=== PATIENT | female | born 1955 | race Caucasian/White ===

== ENCOUNTER 2017-02-15 12:57 | Observation (INO) | payer OTHER ==
[2017-02-15] MEDS ORDERED: Aspirin 81 MG Tab.Chew PO ONE (13:22)
[2017-02-15] MEDS ORDERED: Nitroglycerin 2% Oint 1 GM UD Packet TOP ONE (13:22)
[2017-02-15] MEDS ORDERED: Aspirin 81 MG Tab.Chew ONE (13:28)
[2017-02-15] MEDS ORDERED: Nitroglycerin 2% Oint 1 GM UD Packet ONE (13:29)
--- NOTE | 2017-02-15 13:32 | EDM.PDOC ---
ED HPI GENERAL MEDICAL PROBLEM - General Chief Complaint: Chest Pain Stated Complaint: HIGH PLUS, CHEST PAIN, HIGH BP Time Seen by Provider: 02/15/17 12:57 Source of Information: Reports: Patient History Limitations: Reports: No Limitations - History of Present Illness INITIAL COMMENTS - FREE TEXT/NARRATIVE: 62 years old w f came to the ed with her family due to SSCP 4/10 fro 2 days. Pt has a h/o CAD wit sent placements. Pt was seen in this ed recently for same. No N/V/D or any otehr acute medical issues. SSCP was 4/10, BP was 122/87 pulse 88 on arrival. Onset Date: 02/14/17 Onset Time: 05:00 Duration: Day(s):, Intermittent Location: Reports: Chest Quality: Reports: Dull, Pressure Severity: Moderate Improves with: Reports: Medication Worsens with: Reports: None Associated Symptoms: Reports: Other (CAD) Left Chest Pain Score (Numeric/FACES): 4 - Related Data Allergies Allergy/AdvReac Type Severity Reaction Status Date / Time Penicillins Allergy Other Verified 07/04/16 19:11 Home Meds: Home Meds Aspirin 81 mg PO BEDTIME 07/04/16 [History] Cholecalciferol (Vitamin D3) [Vitamin D3] 1,000 unit PO DAILY 07/04/16 [History] Cyclobenzaprine [Flexeril] 20 mg PO BEDTIME 07/04/16 [History] Gabapentin [Neurontin] 900 mg PO BEDTIME 07/04/16 [History] Metoprolol Tartrate 25 mg PO BID 07/04/16 [History] Prazosin HCl [Prazosin] 4 mg PO BEDTIME 07/04/16 [History] Sennosides/Docusate Sodium [Serenity-Colace] 1 tab PO BEDTIME 07/04/16 [History] atorvaSTATin [Lipitor] 40 mg PO BEDTIME 07/04/16 [History] cloNIDine [Catapres] 0.2 mg PO BEDTIME 07/04/16 [History] lamoTRIgine [Lamotrigine] 150 mg PO BEDTIME 07/04/16 [History] lamoTRIgine [Lamotrigine] 100 mg PO DAILY 07/05/16 [History] Cranberry Extract [Cranberry] 500 mg PO BEDTIME 07/06/16 [History] Ferrous Sulfate 325 mg PO BIDMEALS #30 tab 07/06/16 [Rx] Mv-Mn/FA/Vit K/Lycop/Lut/Zeaxa [Ocuvite Eye + Multi Tablet] 1 tab PO DAILY 07/06 [History] Omeprazole 20 mg PO BIDAC #30 cap.cr 07/06/16 [Rx] Venlafaxine [Effexor XR] 225 mg PO DAILY 07/06/16 [History] Beta-Carotene(A) W-C & E/Min [Vision Vitamins] 1 each PO DAILY 02/15/17 [History ] Montelukast Sodium 10 mg PO DAILY 02/15/17 [History] Vit C/E/Zn/Coppr/Lutein/Zeaxan [Preservision Areds 2 Softgel] 1 each PO BID [History] Past Medical History - Past Health History Medical/Surgical History: Denies Medical/Surgical History HEENT History: Reports: Impaired Vision, Macular Degeneration Cardiovascular History: Reports: High Cholesterol, Hypertension Respiratory History: Reports: Asthma, Sleep Apnea Gastrointestinal History: Reports: Chronic Constipation, PUD 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: Musculoskeletal History: Reports: RA Neurological History: Reports: Concussion, Seizure Other Neuro History: "a couple mini-seizures" Psychiatric History: Reports: Anxiety, Depression Endocrine/Metabolic History: Reports: None Dermatologic History: Reports: None - Past Surgical History HEENT Surgical History: Reports: Naso-Sinus Surgery Cardiovascular Surgical History: Reports: Coronary Artery Stent GI Surgical History: Reports: Appendectomy, Cholecystectomy, Colonoscopy, EGD, Other (See Below) Musculoskeletal Surgical History: Reports: Carpal Tunnel, Knee Replacement, Other (See Below) Social & Family History - Family History Family Medical History: Unobtainable Cardiac: Reports: [place] Musculoskeletal: Reports: Osteoporosis Oncologic: Reports: Hodgkin's Lymphoma - Tobacco Use Smoking Status *Q: Never Smoker Second Hand Smoke Exposure: No - Caffeine Use Caffeine Use: Reports: Coffee, Soda - Recreational Drug Use Recreational Drug Use: No ED ROS GENERAL - Review of Systems Review Of Systems: See Below Constitutional: Reports: No Symptoms HEENT: Reports: No Symptoms Respiratory: Reports: No Symptoms Cardiovascular: Reports: Chest Pain Endocrine: Reports: No Symptoms GI/Abdominal: Reports: No Symptoms : Reports: No Symptoms Musculoskeletal: Reports: No Symptoms Skin: Reports: No Symptoms Neurological: Reports: No Symptoms Psychiatric: Reports: No Symptoms Hematologic/Lymphatic: Reports: No Symptoms Immunologic: Reports: No Symptoms ED EXAM, GENERAL - Physical Exam Exam: See Below Exam Limited By: No Limitations General Appearance: Alert, WD/WN, Mild Distress Eye Exam: Bilateral Eye: Normal Inspection Ears: Normal External Exam Ear Exam: Bilateral Ear: Auricle Normal Nose: Normal Inspection, Normal Mucosa Throat/Mouth: Normal Inspection, Normal Lips, Normal Teeth Head: Atraumatic, Normocephalic Neck: Normal Inspection, Supple, Non-Tender Respiratory/Chest: No Respiratory Distress, Lungs Clear, Normal Breath Sounds Cardiovascular: Normal Peripheral Pulses, Regular Rate, Rhythm, No Edema, No Gallop Peripheral Pulses: 1+: Femoral (L), Femoral (R) GI/Abdominal: Normal Bowel Sounds, Soft, Non-Tender, No Organomegaly, No Distention, No Abnormal Bruit (Female) Exam: Deferred Rectal (Female) Exam: Deferred Back Exam: Normal Inspection, Full Range of Motion Extremities: Normal Inspection, Normal Range of Motion, Non-Tender, No Pedal Edema Neurological: Alert, Oriented, CN II-XII Intact Psychiatric: Normal Affect, Normal Mood Skin Exam: Warm, Dry, Intact, Normal Color Lymphatic: No Adenopathy EKG INTERPRETATION EKG Date: 02/15/17 Time: 13:15 Rate (beats/min): 84 [place]: normal P-wave: present QRS: normal ST-T: normal QT: normal Comparison: NA - no prior EKG Course - Vital Signs Text/Narrative:: 62 years old w f came to the ed with her family due to SSCP 4/10 fro 2 days. Pt has a h/o CAD wit sent placements. Pt was seen in this ed recently for same. No N/V/D or any other acute medical issues. SSCP was 4/10, BP was 122/87 pulse 88 on arrival. pt did not take the clonidin yet. no diaphoresis. PE: SSCP, HTN Labs: CBC, BMP Troponin were nl. Imaging: CXR NAD Impression: Chest pain H/O CAD, HTN Tx: ASA, Nitro Paste, Clonidin. Morphine Reexam: Improved, not pain free yet 11/02 Plan: admit toward Last Recorded V/S: Last Vital Signs Temp 36.9 C 02/15/17 13:05 Pulse 95 02/15/17 13:05 Resp 18 05/26/17 13:05 BP 155/93 H 02/15/17 14:27 Pulse Ox 100 02/15/17 13:05 - Orders/Labs/Meds Orders: Active Orders 24 hr Category Date Time Status CXR [Chest 1V Frontal] [CR] Stat Exams 02/15/17 13:13 Taken Sodium Chloride 0.9% [Normal Saline] 1,000 ml Med 02/15/17 13:30 Active IV ASDIRECTED Medication Orders Sodium Chloride (Normal Saline) 1,000 mls @ 125 mls/hr IV ASDIRECTED [facility] Last Admin: 02/15/17 13:42 Dose: 125 mls/hr Labs: Laboratory Tests 02/15/17 02/15/17 02/15/17 Range/Units 13:30 13:30 13:30 WBC 6.2 (4.5-12.0) X10-3/uL RBC 4.74 (3.23-5.20) x10(6)uL Hgb 14.5 D (11.5-15.5) g/dL Hct 43.3 D (30.0-51.3) % MCV 91.3 (80-96) fL MCH 30.7 (27.7-33.6) pg MCHC 33.6 (32.2-35.4) g/dL RDW 11.5 (11.5-15.5) % Plt Count 264 (125-369) X10(3)uL MPV 7.7 (7.4-10.4) fL Neut % (Auto) 68.3 (46-82) % Lymph % (Auto) 24.1 (13-37) % [place] % (Auto) 4.7 (4-12) % Eos % (Auto) 1 (1.0-5.0) % Baso % (Auto) 2 (0-2) % Neut # (Auto) 4.2 (1.6-8.3) # Lymph # (Auto) 1.5 (0.6-5.0) # [place] # (Auto) 0.3 (0.0-1.3) # Eos # (Auto) 0.1 (0.0-0.8) # Baso # (Auto) 0.1 (0.0-0.2) # PT 9.6 (8.7-11.1) INR 0.95 (0.89-1.13) D-Dimer, Quantitative (100-400) ng/mL Sodium 145 (135-145) mmol/L Potassium 4.4 (3.5-5.3) mmol/L Chloride 110 (100-110) mmol/L Carbon Dioxide 23 (23-29) mmol/L BUN 15 (8-23) mg/dL Creatinine 0.8 (0.6-1.3) mg/dL Est Cr Clr Drug Dosing TNP Estimated GFR (MDRD) > 60 (>60) BUN/Creatinine Ratio 18.8 (9-20) Glucose 60 L (80-116) mg/dL Calcium 9.6 (8.6-10.2) mg/dL Troponin I (0.02-0.06) NG/ML 02/15/17 02/15/17 Range/Units 13:30 13:30 WBC (4.5-12.0) X10-3/uL RBC (3.23-5.20) x10(6)uL Hgb (11.5-15.5) g/dL Hct (30.0-51.3) % MCV (80-96) fL MCH (27.7-33.6) pg MCHC (32.2-35.4) g/dL RDW (11.5-15.5) % Plt Count (125-369) X10(3)uL MPV (7.4-10.4) fL Neut % (Auto) (46-82) % Lymph % (Auto) (13-37) % [place] % (Auto) (4-12) % Eos % (Auto) (1.0-5.0) % Baso % (Auto) (0-2) % Neut # (Auto) (1.6-8.3) # Lymph # (Auto) (0.6-5.0) # [place] # (Auto) (0.0-1.3) # Eos # (Auto) (0.0-0.8) # Baso # (Auto) (0.0-0.2) # PT (8.7-11.1) INR (0.89-1.13) D-Dimer, Quantitative 265 (100-400) ng/mL Sodium (135-145) mmol/L Potassium (3.5-5.3) mmol/L Chloride (100-110) mmol/L Carbon Dioxide (23-29) mmol/L BUN (8-23) mg/dL Creatinine (0.6-1.3) mg/dL Est Cr Clr Drug Dosing Estimated GFR (MDRD) (>60) BUN/Creatinine Ratio (9-20) Glucose (80-116) mg/dL Calcium (8.6-10.2) mg/dL Troponin I < 0.01 L (0.02-0.06) NG/ML Meds: Medications Generic Name Dose Route Start Last Admin Trade Name Freq PRN Reason Stop Dose Admin Sodium Chloride 1,000 mls @ 125 mls/hr 02/15/17 13:30 02/15/17 13:42 Normal Saline IV 125 mls/hr ASDIRECTED [facility] Administration Discontinued Medications Generic Name Dose Route Start Last Admin Trade Name Freq PRN Reason Stop Dose Admin Aspirin 324 mg 02/15/17 13:22 02/15/17 13:43 Aspirin PO 02/15/17 13:23 324 mg ONETIME ONE Administration Aspirin Confirm 02/15/17 13:28 02/15/17 14:12 Aspirin Administered 02/15/17 13:29 Not Given Dose 324 mg .ROUTE .STK-MED ONE Clonidine HCl 0.1 mg 02/15/17 14:16 02/15/17 14:27 Catapres PO 02/15/17 14:17 0.1 mg ONETIME ONE Administration Morphine Sulfate 2 mg 02/15/17 14:29 02/15/17 14:45 Morphine IVPUSH 02/15/17 14:30 2 mg ONETIME ONE Administration Nitroglycerin 1 gm 02/15/17 13:22 02/15/17 13:42 Nitro-Bid 2% TOP 02/15/17 13:23 1 gm ONETIME ONE Administration Nitroglycerin Confirm 02/15/17 13:29 02/15/17 14:12 Nitro-Bid 2% Administered 02/15/17 13:30 Not Given Dose 1 gm .ROUTE .STK-MED ONE Departure - Departure Time of Disposition: 15:23 Disposition: Refer to Observation Condition: fair Clinical Impression: Chest pain Qualifiers: Chest pain type: chest pain due to myocardial ischemia Ischemic chest pain type : unspecified angina pectoris type Qualified Code(s): I20.9 - Angina pectoris, unspecified Referrals: PCP,Not In Area [Primary Care Provider] - Forms: ED Department Discharge - My Orders Last 24 Hours: My Active Orders 02/15/17 13:13 CXR [Chest 1V Frontal] [CR] Stat 02/15/17 13:30 Sodium Chloride 0.9% [Normal Saline] 1,000 ml IV ASDIRECTED - Assessment/Plan Last 24 Hours: My Active Orders 02/15/17 13:13 CXR [Chest 1V Frontal] [CR] Stat 02/15/17 13:30 Sodium Chloride 0.9% [Normal Saline] 1,000 ml IV ASDIRECTED
[2017-02-15] MEDS: Sodium Chloride 0.9% 1,000 ML IV SCH ×2 (13:42→21:37)
[2017-02-15] MEDS ORDERED: cloNIDine 0.1 MG Tab PO ONE (14:16)
[2017-02-15] MEDS ORDERED: Morphine 2 MG/ML Syringe IVPUSH ONE (14:29)
[2017-02-15] MEDS ORDERED: Morphine 2 MG/ML Syringe IVPUSH PRN (15:34)
[2017-02-15] MEDS ORDERED: Ondansetron 4 MG/2 ML SDV IV PRN (15:34)
--- NOTE | 2017-02-15 16:10 | CR ---
INDICATION: Chest pain. CHEST: An AP upright portable view of the chest 02/15/2017 was obtained. No comparisons were available. The heart appeared normal in size. The aorta is slightly tortuous. Overlying EKG leads are noted. An active infiltrate or effusion was not identified. IMPRESSION: No acute process. MTDD
[2017-02-15] MEDS ORDERED: Omeprazole 20 MG Cap.CR PO PRN (17:04)
--- NOTE | 2017-02-15 17:18 | PCM.HP ---
H&P History of Present Illness - General Date of Service: 02/15/17 Source of Information: Patient History Limitations: Reports: No Limitations - History of Present Illness Initial Comments - Free Text/Narative: This is a 62-year-old female patient with known history coronary artery disease. She had a stent placement in 2006. She states she started having chest pain off and on yesterday and it continued today to the point where she came into the ER. She states the chest pain is left lower chest along the anterior axillary line. She denies pleuritic chest pain. She says it does not radiate. She she states she felt clammy other way to the hospital today and had some shortness of breath. She denies nausea. She has a history of coronary artery disease, hyperlipidemia, hypertension. She denies diabetes and smoking. Strong family history for coronary artery disease. Left Chest Pain Score (Numeric/FACES): 4 - Related Data Allergies/Adverse Reactions: Allergies Allergy/AdvReac Type Severity Reaction Status Date / Time Penicillins Allergy Other Verified 07/04/16 19:11 Home Medications: Home Meds Aspirin 81 mg PO BEDTIME 07/04/16 [History] Cholecalciferol (Vitamin D3) [Vitamin D3] 1,000 unit PO DAILY 07/04/16 [History] Cyclobenzaprine [Flexeril] 20 mg PO BEDTIME 07/04/16 [History] Gabapentin [Neurontin] 900 mg PO BEDTIME 07/04/16 [History] Metoprolol Tartrate 25 mg PO BID 07/04/16 [History] Prazosin HCl [Prazosin] 4 mg PO BEDTIME 07/04/16 [History] atorvaSTATin [Lipitor] 40 mg PO BEDTIME 07/04/16 [History] cloNIDine [Catapres] 0.1 mg PO BEDTIME 07/04/16 [History] lamoTRIgine [Lamotrigine] 150 mg PO BEDTIME 07/04/16 [History] lamoTRIgine [Lamotrigine] 100 mg PO DAILY 07/05/16 [History] Cranberry Extract [Cranberry] 500 mg PO BEDTIME 07/06/16 [History] Ferrous Sulfate 325 mg PO BIDMEALS #30 tab 07/06/16 [Rx] Venlafaxine [Effexor XR] 225 mg PO DAILY 07/06/16 [History] Beta-Carotene(A) W-C & E/Min [Vision Vitamins] 1 each PO DAILY 02/15/17 [History ] Docusate Sodium 100 mg PO BEDTIME 02/15/17 [History] Montelukast Sodium 10 mg PO DAILY 02/15/17 [History] Multivitamin with Minerals [Multivitamins with Minerals] 1 tab PO DAILY [History] Omeprazole 40 mg PO BID PRN 02/15/17 [History] Past Medical History - Past Health History Medical/Surgical History: Denies Medical/Surgical History HEENT History: Reports: Impaired Vision, Macular Degeneration Cardiovascular History: Reports: High Cholesterol, Hypertension Other Cardiovascular History: hx a-fib Respiratory History: Reports: Asthma, Sleep Apnea Gastrointestinal History: Reports: Chronic Constipation, PUD Other Gastrointestinal History: GI bleed last July or August, anemic since then 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: Musculoskeletal History: Reports: RA Neurological History: Reports: Concussion, Seizure Other Neuro History: "a couple mini-seizures" Psychiatric History: Reports: Anxiety, Depression Endocrine/Metabolic History: Reports: None Other Endocrine/Metabolic History: occasionally hypoglycemic Hematologic History: Reports: Anemia, Other (See Below) Other Hematologic History: since GI bleed Dermatologic History: Reports: None - Past Surgical History HEENT Surgical History: Reports: Naso-Sinus Surgery Cardiovascular Surgical History: Reports: Coronary Artery Stent GI Surgical History: Reports: Appendectomy, Cholecystectomy, Colonoscopy, EGD, Other (See Below) Female Surgical History: Reports: Hysterectomy Neurological Surgical History: Reports: None Musculoskeletal Surgical History: Reports: Carpal Tunnel, Knee Replacement, Other (See Below) Social & Family History - Family History Family Medical History: Unobtainable Cardiac: Reports: [place] Respiratory: Reports: Asthma GI: Reports: Celiac Disease, Hepatitis, Irritable Bowel Syndrome, Jaundice OBGYN: Reports: Fibroids Musculoskeletal: Reports: Osteoporosis Neurological: Reports: CVA Psychiatric: Reports: ADHD, Bipolar, Depression, Emotional Problems, Learning Disability, Mood Swings Oncologic: Reports: Hodgkin's Lymphoma - Tobacco Use Smoking Status *Q: Never Smoker Second Hand Smoke Exposure: No - Caffeine Use Caffeine Use: Reports: Coffee, Soda Caffeine Use Comment: 2 cups coffee and sometimes up to 2 sodas a day - Alcohol Use Days Per Week of Alcohol Use: 2 Number of Drinks Per Day: 2 Total Drinks Per Week: 4 Date of Last Drink: 02/14/17 Time of Last Drink: 17:00 - Recreational Drug Use Recreational Drug Use: No H&P Review of Systems - Review of Systems: Review Of Systems: See Below General: Reports: No Symptoms HEENT: Reports: No Symptoms Pulmonary: Reports: Shortness of Breath. Denies: Wheezing, Pleuritic Chest Pain , Cough, Sputum Cardiovascular: Reports: Chest Pain. Denies: Dyspnea on Exertion, Orthopnea, PND, Edema Gastrointestinal: Reports: No Symptoms Genitourinary: Reports: No Symptoms Musculoskeletal: Reports: No Symptoms Skin: Reports: No Symptoms Psychiatric: Reports: No Symptoms Neurological: Reports: No Symptoms Hematologic/Lymphatic: Reports: No Symptoms Immunologic: Reports: No Symptoms Exam - Exam Exam: See Below - Vital Signs Vital Signs: Last Vital Signs Temp 98.7 F 02/15/17 15:55 Pulse 65 02/15/17 15:55 Resp 14 02/15/17 15:55 BP 146/86 H 02/15/17 15:55 Pulse Ox 97 02/15/17 16:12 Weight: 173 lb 0.1 oz - Exam General: Alert, Oriented, Cooperative HEENT: EOMI, Mucosa Moist & [place], Posterior Pharynx Clear, TMs Clear. No: Rhinitis Neck: Supple, Trachea Midline, +2 Carotid Pulse wo Bruit. No: Carotid Bruit, JVD Lungs: Clear to Auscultation, Normal Respiratory Effort. No: Crackles, Rales, Rhonchi, Rub Cardiovascular: Regular Rate, Regular Rhythm, Normal S1, Normal S2. No: Bradycardia, Tachycardia, Systolic Murmur Abdomen: Normal Bowel Sounds, Soft, Distention, Guarding. No: Peritoneal Signs Back Exam: Normal Inspection, Full Range of Motion Extremities: Normal Inspection. No: Edema Skin: Warm, Dry, Intact Neuro Extensive - Mental Status: Alert, Oriented x3, Normal Mood/Affect, Normal Cognition Psychiatric: Alert, Normal Affect, Normal Mood - Patient Data Result Diagrams: 02/15/17 13:30 02/15/17 13:30 EKG INTERPRETATION EKG Interpretation Comments: Normal sinus rhythm without ST abnormalities *Q Meaningful Use (ADM) - VTE *Q VTE Criteria *Q: - Stroke *Q Stroke Criteria *Q: - AMI *Q AMI Criteria *Q: - Problem List (1) Chest pain SNOMED Code(s): 75622554 ICD Code: R07.9 - CHEST PAIN, UNSPECIFIED Status: Acute Current Visit: Yes Qualifiers: Chest pain type: chest pain due to myocardial ischemia Ischemic chest pain type: unspecified angina pectoris type Qualified Code(s): I20.9 - Angina pectoris, unspecified Problem List Initiated/Reviewed/Updated: Yes Orders Last 24hrs: Active Orders 24 hr Category Date Time Status Aspirin Med 02/15/17 21:00 Active 81 mg PO BEDTIME Beta-Carotene(A) w/C & E/Min [Prosight] Med 02/16/17 09:00 Active 1 tab PO DAILY Cholecalciferol (Vitamin D3) [Vitamin D3] Med 02/16/17 09:00 Active 1,000 units PO DAILY Cranberry Med 02/15/17 21:00 Active 500 mg PO BEDTIME Cyclobenzaprine [Flexeril] Med 02/15/17 21:00 Active 20 mg PO BEDTIME Docusate Sodium [Colace] Med 02/15/17 21:00 Active 100 mg PO BEDTIME Ferrous Sulfate Med 02/15/17 18:00 Active 325 mg PO BIDMEALS Gabapentin [Neurontin] Med 02/15/17 21:00 Active 900 mg PO BEDTIME Metoprolol Tartrate [Lopressor] Med 02/15/17 21:00 Active 25 mg PO BID Montelukast [Singulair] Med 02/16/17 09:00 Active 10 mg PO DAILY Multivitamins/Minerals [Vitamins and Minerals] Med 02/16/17 09:00 Active 1 tab PO DAILY Omeprazole Med 02/15/17 17:04 Active 40 mg PO BID PRN Prazosin HCl [Prazosin] Med 02/15/17 21:00 Ordered 4 mg PO BEDTIME Venlafaxine [Effexor XR] Med 02/16/17 09:00 Active 225 mg PO DAILY atorvaSTATin [Lipitor] Med 02/15/17 21:00 Active 40 mg PO BEDTIME cloNIDine [Catapres] Med 02/15/17 21:00 Active 0.1 mg PO BEDTIME lamoTRIgine Med 02/16/17 09:00 Active 100 mg PO DAILY lamoTRIgine Med 02/15/17 21:00 Active 150 mg PO BEDTIME Medication Orders Aspirin (Aspirin) 81 mg PO BEDTIME [facility] Atorvastatin Calcium (Lipitor) 40 mg PO BEDTIME [facility] Cholecalciferol (Vitamin D3) 1,000 units PO DAILY [facility] Clonidine HCl (Catapres) 0.1 mg PO BEDTIME [facility] Cranberry (Cranberry) 500 mg PO BEDTIME [facility] Cyclobenzaprine HCl (Flexeril) 20 mg PO BEDTIME [facility] Docusate Sodium (Colace) 100 mg PO BEDTIME [facility] Ferrous Sulfate (Ferrous Sulfate) 325 mg PO BIDMEALS [facility] Gabapentin (Neurontin) 900 mg PO BEDTIME [facility] Sodium Chloride (Normal Saline) 1,000 mls @ 125 mls/hr IV ASDIRECTED [facility] Last Admin: 02/15/17 13:42 Dose: 125 mls/hr Lamotrigine (Lamotrigine) 100 mg PO DAILY [facility] Lamotrigine (Lamotrigine) 150 mg PO BEDTIME [facility] Metoprolol Tartrate (Lopressor) 25 mg PO BID [facility] Montelukast Sodium (Singulair) 10 mg PO DAILY [facility] Morphine Sulfate (Morphine) 2 mg IVPUSH Q2H PRN PRN Reason: Pain (severe 7-10) Multivitamins/Minerals (Prosight) 1 tab PO DAILY [facility] Multivitamins/Minerals (Vitamins And Minerals) 1 tab PO DAILY [facility] Non-Formulary Medication (Prazosin Hcl [Prazosin]) 4 mg PO BEDTIME [facility] Omeprazole (Omeprazole) 40 mg PO BID PRN PRN Reason: STOMACH Ondansetron HCl (Zofran) 4 mg IV Q4H PRN PRN Reason: Nausea/Vomiting Venlafaxine HCl (Effexor Xr) 225 mg PO DAILY [facility] Assessment/Plan Comment:: 1. Admit for observation with telemetry. Atypical chest pain but strong family history, personal history and risk factors. 2. Full code. 3. Cardiac diet 4. Up ad essie. 5. Serial troponin and EKG every 6 hours x3 total 6. Continue current medicines.
[2017-02-15] MEDS: Ferrous Sulfate 325 MG Tab PO SCH (19:18)
[2017-02-15] MEDS ORDERED: Acetaminophen 325 MG Tab PO PRN (19:32)
[2017-02-15] MEDS: Metoprolol Tartrate 25 MG Tab PO SCH (20:30)
[2017-02-15] MEDS ORDERED: PRAZOSIN HCL 2 MG PO SCH (21:00)
[2017-02-15] MEDS ORDERED: cloNIDine 0.1 MG Tab PO SCH (21:00)
[2017-02-15] MEDS ORDERED: Cyclobenzaprine 10 MG Tab PO SCH (21:00)
[2017-02-15] MEDS ORDERED: Aspirin 81 MG Tab.Chew PO SCH (21:00)
[2017-02-15] MEDS ORDERED: Cranberry 500 MG Cap PO SCH (21:00)
[2017-02-15] MEDS ORDERED: Docusate Sodium 100 MG Cap PO SCH (21:00)
[2017-02-15] MEDS ORDERED: atorvaSTATin 40 MG Tab PO SCH (21:00)
[2017-02-15] MEDS ORDERED: Gabapentin 300 MG Cap PO SCH (21:00)
[2017-02-15] MEDS ORDERED: lamoTRIgine 100 MG Tab PO SCH (21:00)
[2017-02-16] MEDS: Sodium Chloride 0.9% 1,000 ML IV SCH (05:41)
[2017-02-16 08:27] VITALS: BP 142/84
--- NOTE | 2017-02-16 08:35 | PCM.PN ---
- General Info Date of Service: 02/16/17 Admission Dx/Problem (Free Text): Patient states her pain is much improved. It's better very mildly today. It's in her left axilla. It does not radiate. She denies shortness of breath, diaphoresis, nausea, shortness of breath, retrosternal chest pain. - Patient Data Vitals - most recent: Last Vital Signs Temp 98 F 02/16/17 08:00 Pulse 63 02/16/17 08:00 Resp 16 02/16/17 08:00 BP 142/84 H 02/16/17 08:00 Pulse Ox 97 02/16/17 08:00 Weight - most recent: 173 lb 0.1 oz I&O - last 24 hours: Intake & Output 02/15/17 02/16/17 02/16/17 22:59 06:59 14:59 Intake Total 1405 986 Output Total 650 Balance 755 986 Lab Results last 24 hrs: Laboratory Results - last 24 hr 02/15/17 02/16/17 Range/Units 20:00 02:25 Troponin I < 0.01 L < 0.01 L (0.02-0.06) NG/ML Med Orders - Current: Current Medications Acetaminophen (Tylenol) 650 mg PO Q4H PRN PRN Reason: Pain/Fever Aspirin (Aspirin) 81 mg PO BEDTIME [facility] Last Admin: 02/15/17 20:27 Dose: 81 mg Atorvastatin Calcium (Lipitor) 40 mg PO BEDTIME [facility] Last Admin: 02/15/17 20:29 Dose: 40 mg Cholecalciferol (Vitamin D3) 1,000 units PO DAILY [facility] Clonidine HCl (Catapres) 0.1 mg PO BEDTIME [facility] Last Admin: 02/15/17 20:28 Dose: 0.1 mg Cranberry (Cranberry) 500 mg PO BEDTIME [facility] Last Admin: 02/15/17 20:28 Dose: 500 mg Cyclobenzaprine HCl (Flexeril) 20 mg PO BEDTIME [facility] Last Admin: 02/15/17 20:28 Dose: 20 mg Docusate Sodium (Colace) 100 mg PO BEDTIME [facility] Last Admin: 02/15/17 20:28 Dose: 100 mg Ferrous Sulfate (Ferrous Sulfate) 325 mg PO BIDMEALS [facility] Last Admin: 02/15/17 19:18 Dose: 325 mg Gabapentin (Neurontin) 900 mg PO BEDTIME [facility] Last Admin: 02/15/17 20:30 Dose: 900 mg Sodium Chloride (Normal Saline) 1,000 mls @ 125 mls/hr IV ASDIRECTED [facility] Last Admin: 02/16/17 05:41 Dose: 125 mls/hr Lamotrigine (Lamotrigine) 100 mg PO DAILY [facility] Lamotrigine (Lamotrigine) 150 mg PO BEDTIME [facility] Last Admin: 02/15/17 20:29 Dose: 150 mg Metoprolol Tartrate (Lopressor) 25 mg PO BID [facility] Last Admin: 02/15/17 20:30 Dose: 25 mg Montelukast Sodium (Singulair) 10 mg PO DAILY [facility] Morphine Sulfate (Morphine) 2 mg IVPUSH Q2H PRN PRN Reason: Pain (severe 7-10) Multivitamins/Minerals (Prosight) 1 tab PO DAILY [facility] Multivitamins/Minerals (Vitamins And Minerals) 1 tab PO DAILY [facility] (Prazosin Hcl [ Prazosin] 2 Mg) * Ptom 4 mg PO BEDTIME [facility] Last Admin: 02/15/17 20:31 Dose: 4 mg Omeprazole (Omeprazole) 40 mg PO BID PRN PRN Reason: STOMACH Ondansetron HCl (Zofran) 4 mg IV Q4H PRN PRN Reason: Nausea/Vomiting Venlafaxine HCl (Effexor Xr) 225 mg PO DAILY [facility] Discontinued Medications Aspirin (Aspirin) 324 mg PO ONETIME ONE Stop: 02/15/17 13:23 Last Admin: 02/15/17 13:43 Dose: 324 mg Aspirin (Aspirin) Confirm Administered Dose 324 mg .ROUTE .STK-MED ONE Stop: 02/15/17 13:29 Last Admin: 02/15/17 14:12 Dose: Not Given Clonidine HCl (Catapres) 0.1 mg PO ONETIME ONE Stop: 02/15/17 14:17 Last Admin: 02/15/17 14:27 Dose: 0.1 mg Morphine Sulfate (Morphine) 2 mg IVPUSH ONETIME ONE Stop: 02/15/17 14:30 Last Admin: 02/15/17 14:45 Dose: 2 mg Nitroglycerin (Nitro-Bid 2%) 1 gm TOP ONETIME ONE Stop: 02/15/17 13:23 Last Admin: 02/15/17 13:42 Dose: 1 gm Nitroglycerin (Nitro-Bid 2%) Confirm Administered Dose 1 gm .ROUTE .STK-MED ONE Stop: 02/15/17 13:30 Last Admin: 02/15/17 14:12 Dose: Not Given - Exam General: alert, oriented, cooperative Neck: supple Lungs: Clear to auscultation, Normal respiratory effort. No: Crackles, Rales, Rhonchi, Rub Cardiovascular: Regular Rate, Regular Rhythm, No Murmurs Extremities: no edema, other (She has pain over the lateral rectus muscle on palpation) - Problem List & Annotations (1) Chest wall pain SNOMED Code(s): 349146533 Code(s): R07.89 - OTHER CHEST PAIN Status: Acute Current Visit: Yes (2) Coronary artery disease SNOMED Code(s): 08303642 Code(s): I25.10 - ATHSCL HEART DISEASE OF [place] CORONARY ARTERY W/O ANG PCTRS Status: Acute Current Visit: Yes - Problem List Review Problem List Initiated/Reviewed/Updated: Yes - My Orders Last 24 Hours: My Active Orders 02/15/17 17:04 Omeprazole 40 mg PO BID PRN 02/15/17 18:00 Ferrous Sulfate 325 mg PO BIDMEALS 02/15/17 19:32 Acetaminophen [Tylenol] 650 mg PO Q4H PRN 02/15/17 20:00 EKG 12 Lead [EK] Routine 02/15/17 21:00 Aspirin 81 mg PO BEDTIME Cranberry 500 mg PO BEDTIME Cyclobenzaprine [Flexeril] 20 mg PO BEDTIME Docusate Sodium [Colace] 100 mg PO BEDTIME Gabapentin [Neurontin] 900 mg PO BEDTIME Metoprolol Tartrate [Lopressor] 25 mg PO BID Prazosin HCl [Prazosin] 4 mg PO BEDTIME atorvaSTATin [Lipitor] 40 mg PO BEDTIME cloNIDine [Catapres] 0.1 mg PO BEDTIME lamoTRIgine 150 mg PO BEDTIME 02/16/17 02:00 EKG 12 Lead [EK] Routine 02/16/17 09:00 Beta-Carotene(A) w/C & E/Min [Prosight] 1 tab PO DAILY Cholecalciferol (Vitamin D3) [Vitamin D3] 1,000 units PO DAILY Montelukast [Singulair] 10 mg PO DAILY Multivitamins/Minerals [Vitamins and Minerals] 1 tab PO DAILY Venlafaxine [Effexor XR] 225 mg PO DAILY lamoTRIgine 100 mg PO DAILY - Plan Plan:: 1. Discharge to home 2. Ibuprofen or nonsteroidal anti-inflammatories.. 3. She will follow up with myself in 7-10 days. 4. Set up stress echo at [facility] in [place].
--- NOTE | 2017-02-16 08:40 | PCM.DCSUM1 ---
Discharge Summary - Hospital Course Free Text/Narrative:: Patient was admitted for rule out RI. I told the patient that this is atypical chest pain. She was put on telemetry and had 3 troponins and 3 EKGs all within normal limits. Overnight her pain was much improved. She had most of it in the left pectoralis muscle that is reproducible on palpation. As noted previously she does have a history of coronary artery disease having a stent placed in 2006. I will send her home on all of her medications. Set up a stress echo outpatient. Brief History: This is a 62-year-old female patient with known history coronary artery disease. She had a stent placement in 2006. She states she started having chest pain off and on yesterday and it continued today to the point where she came into the ER. She states the chest pain is left lower chest along the anterior axillary line. She denies pleuritic chest pain. She says it does not radiate. She she states she felt clammy other way to the hospital today and had some shortness of breath. She denies nausea. She has a history of coronary artery disease, hyperlipidemia, hypertension. She denies diabetes and smoking. Strong family history for coronary artery disease. - Discharge Data Discharge Date: 02/16/17 Discharge Disposition: Home, Self-Care 01 Condition: Good - Discharge Diagnosis/Problem(s) (1) Chest wall pain SNOMED Code(s): 692570817 ICD Code: R07.89 - OTHER CHEST PAIN Status: Acute Current Visit: Yes (2) Coronary artery disease SNOMED Code(s): 39704213 ICD Code: I25.10 - ATHSCL HEART DISEASE OF [place] CORONARY ARTERY W/O ANG PCTRS Status: Acute Current Visit: Yes - Patient Instructions Diet: Heart Healthy Diet Activity: As Tolerated Driving: May Drive Today Showering/Bathing: May Shower Notify Provider of: Increased Pain Other/Special Instructions: 1. Recheck with Dr. Valladares in 7-10 days. 2. Set up a stress echo at [facility] in [place]. She is to hold her metoprolol the day of the procedure. - Discharge Plan Home Medications: Home Meds Aspirin 81 mg PO BEDTIME 07/04/16 [History] Cholecalciferol (Vitamin D3) [Vitamin D3] 1,000 unit PO DAILY 07/04/16 [History] Cyclobenzaprine [Flexeril] 20 mg PO BEDTIME 07/04/16 [History] Gabapentin [Neurontin] 900 mg PO BEDTIME 07/04/16 [History] Metoprolol Tartrate 25 mg PO BID 07/04/16 [History] Prazosin HCl [Prazosin] 4 mg PO BEDTIME 07/04/16 [History] atorvaSTATin [Lipitor] 40 mg PO BEDTIME 07/04/16 [History] cloNIDine [Catapres] 0.1 mg PO BEDTIME 07/04/16 [History] lamoTRIgine [Lamotrigine] 150 mg PO BEDTIME 07/04/16 [History] lamoTRIgine [Lamotrigine] 100 mg PO DAILY 07/05/16 [History] Cranberry Extract [Cranberry] 500 mg PO BEDTIME 07/06/16 [History] Ferrous Sulfate 325 mg PO BIDMEALS #30 tab 07/06/16 [Rx] Venlafaxine [Effexor XR] 225 mg PO DAILY 07/06/16 [History] Beta-Carotene(A) W-C & E/Min [Vision Vitamins] 1 each PO DAILY 02/15/17 [History ] Docusate Sodium 100 mg PO BEDTIME 02/15/17 [History] Montelukast Sodium 10 mg PO DAILY 02/15/17 [History] Multivitamin with Minerals [Multivitamins with Minerals] 1 tab PO DAILY [History] Omeprazole 40 mg PO BID PRN 02/15/17 [History] Forms: ED Department Discharge Referrals: PCP,Not In Area [Primary Care Provider] - - Discharge Summary/Plan Comment DC Time >30 min.: No - Patient Data Vitals - Most Recent: Last Vital Signs Temp 98 F 02/16/17 08:00 Pulse 63 02/16/17 08:00 Resp 16 02/16/17 08:00 BP 142/84 H 02/16/17 08:00 Pulse Ox 97 02/16/17 08:00 Weight - Most Recent: 173 lb 0.1 oz I&O - Last 24 hours: Intake & Output 02/15/17 02/16/17 02/16/17 22:59 06:59 14:59 Intake Total 1405 986 Output Total 650 Balance 755 986 Lab Results - Last 24 hrs: Laboratory Results - last 24 hr 02/15/17 02/16/17 Range/Units 20:00 02:25 Troponin I < 0.01 L < 0.01 L (0.02-0.06) NG/ML Med Orders - Current: Current Medications Acetaminophen (Tylenol) 650 mg PO Q4H PRN PRN Reason: Pain/Fever Aspirin (Aspirin) 81 mg PO BEDTIME [facility] Last Admin: 02/15/17 20:27 Dose: 81 mg Atorvastatin Calcium (Lipitor) 40 mg PO BEDTIME [facility] Last Admin: 02/15/17 20:29 Dose: 40 mg Cholecalciferol (Vitamin D3) 1,000 units PO DAILY [facility] Clonidine HCl (Catapres) 0.1 mg PO BEDTIME [facility] Last Admin: 02/15/17 20:28 Dose: 0.1 mg Cranberry (Cranberry) 500 mg PO BEDTIME [facility] Last Admin: 02/15/17 20:28 Dose: 500 mg Cyclobenzaprine HCl (Flexeril) 20 mg PO BEDTIME [facility] Last Admin: 02/15/17 20:28 Dose: 20 mg Docusate Sodium (Colace) 100 mg PO BEDTIME [facility] Last Admin: 02/15/17 20:28 Dose: 100 mg Ferrous Sulfate (Ferrous Sulfate) 325 mg PO BIDMEALS [facility] Last Admin: 02/15/17 19:18 Dose: 325 mg Gabapentin (Neurontin) 900 mg PO BEDTIME [facility] Last Admin: 02/15/17 20:30 Dose: 900 mg Sodium Chloride (Normal Saline) 1,000 mls @ 125 mls/hr IV ASDIRECTED [facility] Last Admin: 02/16/17 05:41 Dose: 125 mls/hr Lamotrigine (Lamotrigine) 100 mg PO DAILY [facility] Lamotrigine (Lamotrigine) 150 mg PO BEDTIME [facility] Last Admin: 02/15/17 20:29 Dose: 150 mg Metoprolol Tartrate (Lopressor) 25 mg PO BID [facility] Last Admin: 02/15/17 20:30 Dose: 25 mg Montelukast Sodium (Singulair) 10 mg PO DAILY [facility] Morphine Sulfate (Morphine) 2 mg IVPUSH Q2H PRN PRN Reason: Pain (severe 7-10) Multivitamins/Minerals (Prosight) 1 tab PO DAILY [facility] Multivitamins/Minerals (Vitamins And Minerals) 1 tab PO DAILY [facility] (Prazosin Hcl [ Prazosin] 2 Mg) * Ptom 4 mg PO BEDTIME [facility] Last Admin: 02/15/17 20:31 Dose: 4 mg Omeprazole (Omeprazole) 40 mg PO BID PRN PRN Reason: STOMACH Ondansetron HCl (Zofran) 4 mg IV Q4H PRN PRN Reason: Nausea/Vomiting Venlafaxine HCl (Effexor Xr) 225 mg PO DAILY [facility] Discontinued Medications Aspirin (Aspirin) 324 mg PO ONETIME ONE Stop: 02/15/17 13:23 Last Admin: 02/15/17 13:43 Dose: 324 mg Aspirin (Aspirin) Confirm Administered Dose 324 mg .ROUTE .STK-MED ONE Stop: 02/15/17 13:29 Last Admin: 02/15/17 14:12 Dose: Not Given Clonidine HCl (Catapres) 0.1 mg PO ONETIME ONE Stop: 02/15/17 14:17 Last Admin: 02/15/17 14:27 Dose: 0.1 mg Morphine Sulfate (Morphine) 2 mg IVPUSH ONETIME ONE Stop: 02/15/17 14:30 Last Admin: 02/15/17 14:45 Dose: 2 mg Nitroglycerin (Nitro-Bid 2%) 1 gm TOP ONETIME ONE Stop: 02/15/17 13:23 Last Admin: 02/15/17 13:42 Dose: 1 gm Nitroglycerin (Nitro-Bid 2%) Confirm Administered Dose 1 gm .ROUTE .STK-MED ONE Stop: 02/15/17 13:30 Last Admin: 02/15/17 14:12 Dose: Not Given *Q Meaningful Use (DIS) - VTE *Q VTE Criteria *Q: - Stroke *Q Stroke Criteria *Q: - AMI *Q AMI Criteria *Q:
[2017-02-16] MEDS ORDERED: Multivitamins, Therapeutic with Minerals Tab PO SCH (09:00)
[2017-02-16] MEDS ORDERED: Cholecalciferol (Vitamin D3) 1,000 Unit Tab PO SCH (09:00)
[2017-02-16] MEDS ORDERED: Beta-Carotene (Vitamin A) w/Vitamin C & E plus Minerals Tab PO SCH (09:00)
[2017-02-16] MEDS ORDERED: lamoTRIgine 100 MG Tab PO SCH (09:00)
[2017-02-16] MEDS ORDERED: Venlafaxine 75 MG Cap.ER PO SCH (09:00)
[2017-02-16] MEDS ORDERED: Montelukast 10 MG Tab PO SCH (09:00)
[2017-02-16] MEDS: Ferrous Sulfate 325 MG Tab PO SCH (09:22)
[2017-02-16] MEDS: Metoprolol Tartrate 25 MG Tab PO SCH (09:24)
== END 2017-02-16 10:35 | disposition home or self-care (01) ==
LOC: FB.ED 12:57 → FB.MS 15:57
PROVIDERS: ADMIT Family Medicine; ATTEND Family Medicine
DX: R07.89 Other chest pain (principal); I25.10 Atherosclerotic heart disease of native coronary artery without angina pectoris; I10 Essential (primary) hypertension; E78.00 Pure hypercholesterolemia, unspecified; J45.909 Unspecified asthma, uncomplicated; G47.30 Sleep apnea, unspecified; F41.9 Anxiety disorder, unspecified; F32.9 Major depressive disorder, single episode, unspecified; D64.9 Anemia, unspecified; Z88.0 Allergy status to penicillin; Z79.82 Long term (current) use of aspirin; Z79.899 Other long term (current) drug therapy; Z90.49 Acquired absence of other specified parts of digestive tract; Z98.890 Other specified postprocedural states; Z95.5 Presence of coronary angioplasty implant and graft; Z96.659 Presence of unspecified artificial knee joint
CPT/HCPCS: 36415; 71010; 80048; 84484; 85025; 85379; 85610; 93005; 96361; 96374; 99285; A9270; J2270; J7040; G0378

== ENCOUNTER 2017-03-20 12:46 | Emergency (ER) | payer OTHER ==
--- NOTE | 2017-03-20 13:31 | CR ---
INDICATION: Chest pain - upper mid chest while having a stress test. CHEST: PA and lateral views of the chest, 03/20/2017, were compared with 2016 and revealed suggestion of increased heart size compared with the previous study, since the previous examination was a portable AP upright, compared with a PA upright on the present study. No specific chamber enlargement was identified. The aorta is slightly tortuous with minimal calcification in the arch. A definite active infiltrate or effusion was not identified. Minimal dextroconvex scoliosis of the upper middle thoracic spine is noted. IMPRESSION: 1. No definite acute process. 2. There does appear to be an increase in heart size compared with the previous portable study only a month ago. This should be correlated clinically- the heart is at he upper limits of normal in size. 3. Minimal scoliosis. MTDD
[2017-03-20 14:10] VITALS: BP 126/74
[2017-03-20] MEDS ORDERED: Nitroglycerin 2% Oint 1 GM UD Packet TOP ONE (14:17)
[2017-03-20] MEDS ORDERED: Sodium Chloride 0.9% 1,000 ML IV SCH (14:30)
--- NOTE | 2017-03-20 14:51 | EDM.PDOC ---
ED HPI GENERAL MEDICAL PROBLEM - General Chief Complaint: Chest Pain Stated Complaint: STRESS TEST Time Seen by Provider: 03/20/17 13:49 Source of Information: Reports: Patient, EMS, Family History Limitations: Reports: No Limitations - History of Present Illness INITIAL COMMENTS - FREE TEXT/NARRATIVE: 62 y.o.w.f. had a cardiac stress test at the clinic. At the end of the test, pt had left upper chest pain, which was continuing. Pt was rushed to the ED. ASA and Nitro were given [employer]ALITY IMPROVEMENT ENGINEER. Pt subsided to 0-1. ECG was nl. BP was 126/87. As per patient, her SBP goes from 87 to 201 occ. Pt is on Metoprolo and Norvasc. Onset: Today Onset Date: 03/20/17 Onset Time: 12:00 Duration: Minutes:, Intermittent Location: Reports: Chest Quality: Reports: Burning, Dull Severity: Moderate (resolved QUALITY IMPROVEMENT ENGINEER after ASA and NTG) Improves with: Reports: None Worsens with: Reports: None Treatments QUALITY IMPROVEMENT ENGINEER: Reports: Aspirin, IV/IO, Nitroglycerin Mid-Sternal Pain Score (Numeric/FACES): 2 - Related Data Allergies Allergy/AdvReac Type Severity Reaction Status Date / Time acetaminophen [From Vicodin] Allergy Cannot Verified 03/20/17 13:48 Remember hydrocodone [From Vicodin] Allergy Cannot Verified 03/20/17 13:48 Remember hydromorphone [From Dilaudid] Allergy Cannot Verified 03/20/17 13:48 Remember Penicillins Allergy Anaphylactic Verified 03/20/17 13:47 Shock Home Meds: Home Meds Aspirin 81 mg PO BEDTIME 07/04/16 [History] Cholecalciferol (Vitamin D3) [Vitamin D3] 1,000 unit PO DAILY 07/04/16 [History] Cyclobenzaprine [Flexeril] 20 mg PO BEDTIME 07/04/16 [History] Gabapentin [Neurontin] 900 mg PO BEDTIME 07/04/16 [History] Metoprolol Tartrate 25 mg PO BID 07/04/16 [History] Prazosin HCl [Prazosin] 4 mg PO BEDTIME 07/04/16 [History] atorvaSTATin [Lipitor] 40 mg PO BEDTIME 07/04/16 [History] lamoTRIgine [Lamotrigine] 150 mg PO BEDTIME 07/04/16 [History] lamoTRIgine [Lamotrigine] 100 mg PO DAILY 07/05/16 [History] Cranberry Extract [Cranberry] 500 mg PO BEDTIME 07/06/16 [History] Ferrous Sulfate 325 mg PO BIDMEALS #30 tab 07/06/16 [Rx] Venlafaxine [Effexor XR] 225 mg PO DAILY 07/06/16 [History] Beta-Carotene(A) W-C & E/Min [Vision Vitamins] 1 each PO DAILY 02/15/17 [History ] Docusate Sodium 100 mg PO BEDTIME 02/15/17 [History] Montelukast Sodium 10 mg PO DAILY 02/15/17 [History] Multivitamin with Minerals [Multivitamins with Minerals] 1 tab PO DAILY [History] Omeprazole 40 mg PO BID PRN 02/15/17 [History] amLODIPine [Norvasc] 5 mg PO BEDTIME 03/20/17 [History] Past Medical History - Past Health History Medical/Surgical History: Denies Medical/Surgical History HEENT History: Reports: Impaired Vision, Macular Degeneration Cardiovascular History: Reports: High Cholesterol, Hypertension Other Cardiovascular History: hx a-fib Respiratory History: Reports: Asthma, Sleep Apnea Gastrointestinal History: Reports: Chronic Constipation, PUD Other Gastrointestinal History: GI bleed last July or August, anemic since then Genitourinary History: Reports: None 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 LAST SEIZURE 2013 Psychiatric History: Reports: Anxiety, Depression, Panic Attack Endocrine/Metabolic History: Reports: None Other Endocrine/Metabolic History: occasionally hypoglycemic Hematologic History: Reports: Anemia, Other (See Below) Other Hematologic History: since GI bleed Dermatologic History: Reports: None - Past Surgical History HEENT Surgical History: Reports: Naso-Sinus Surgery Cardiovascular Surgical History: Reports: Coronary Artery Stent Respiratory Surgical History: Reports: None GI Surgical History: Reports: Appendectomy, Cholecystectomy, Colonoscopy, EGD, Other (See Below) Other GI Surgeries/Procedures: EXPLORATORY LAPAROTOMY, LAPAROTOMY ADHESION REMOVAL Female Surgical History: Reports: Hysterectomy Neurological Surgical History: Reports: None Musculoskeletal Surgical History: Reports: Arthroscopic Knee, Carpal Tunnel Social & Family History - Family History Family Medical History: Unobtainable Cardiac: Reports: PR Respiratory: Reports: Asthma GI: Reports: Celiac Disease, Hepatitis, Irritable Bowel Syndrome, Jaundice OBGYN: Reports: Fibroids Musculoskeletal: Reports: Osteoporosis Neurological: Reports: CVA Psychiatric: Reports: ADHD, Bipolar, Depression, Emotional Problems, Learning Disability, Mood Swings Oncologic: Reports: Hodgkin's Lymphoma - Tobacco Use Smoking Status *Q: Never Smoker Second Hand Smoke Exposure: No - Caffeine Use Caffeine Use: Reports: Coffee, Soda Caffeine Use Comment: 2 cups coffee and sometimes up to 2 sodas a day - Alcohol Use Days Per Week of Alcohol Use: 5 Number of Drinks Per Day: 2 Total Drinks Per Week: 10 - Recreational Drug Use Recreational Drug Use: No ED ROS GENERAL - Review of Systems Review Of Systems: See Below Constitutional: Reports: No Symptoms HEENT: Reports: No Symptoms Respiratory: Reports: No Symptoms Cardiovascular: Reports: Chest Pain Endocrine: Reports: No Symptoms GI/Abdominal: Reports: No Symptoms : Reports: No Symptoms Musculoskeletal: Reports: No Symptoms Skin: Reports: No Symptoms Neurological: Reports: No Symptoms Psychiatric: Reports: No Symptoms Hematologic/Lymphatic: Reports: No Symptoms Immunologic: Reports: No Symptoms ED EXAM, GENERAL - Physical Exam Exam: See Below Exam Limited By: No Limitations General Appearance: Alert, WD/WN, Mild Distress Eye Exam: Bilateral Eye: Normal Inspection Ears: Normal External Exam Ear Exam: Bilateral Ear: Auricle Normal Nose: Normal Inspection, Normal Mucosa Throat/Mouth: Normal Inspection, Normal Lips Head: Atraumatic, Normocephalic Neck: Normal Inspection, Supple, Non-Tender Respiratory/Chest: No Respiratory Distress Cardiovascular: Normal Peripheral Pulses, Regular Rate, Rhythm, No Edema, No Gallop Peripheral Pulses: 2+: Popliteal (L), Popliteal (R) GI/Abdominal: Normal Bowel Sounds, Soft, Non-Tender (Female) Exam: Deferred Rectal (Female) Exam: Deferred Back Exam: Normal Inspection, Full Range of Motion Extremities: Normal Inspection, Normal Range of Motion, Non-Tender, No Pedal Edema, Normal Capillary Refill Neurological: Alert, Oriented, CN II-XII Intact, Normal Cognition, Normal Gait Psychiatric: Normal Affect Skin Exam: Warm, Dry, Intact, Normal Color, No Rash Lymphatic: No Adenopathy EKG INTERPRETATION EKG Date: 03/20/17 Time: 12:55 Rhythm: NSR Rate (Beats/Min): 68 [place]: Normal P-Wave: Present QRS: Normal ST-T: Normal QT: Normal Comparison: NA - No Prior EKG Course - Vital Signs Text/Narrative:: 62 y.o.w.f. had a cardiac stress test at the clinic. At the end of the test, pt had left upper chest pain, which was continuing. Pt was rushed to the ED. ASA and Nitro were given QUALITY IMPROVEMENT ENGINEER. Pt subsided to 0-1. ECG was nl. BP was 126/87. As per patient, her SBP goes from 87 to 201 occ. Pt is on Metoprolo and Norvasc. PE: WNWD WF NAD with the vitals mentioned above. Labs: CBC, BMP and cardiac enzymes were neg Imaging: Mildly enlarged HS, No CHF or any other infiltrate PER DR. Ortega. Impression: Chest pain DDX Stable angina), HTN, enlarged HS Tx: NTG, NS, ASA. Reexam: improved Consultation: Dr. Collier, Computer Systems Design Analyst [facility]: Admit to hospitalist, will not do an angiogram just on CP. Admit to the Hospitalist Consultation: Dr. Quinteros, Hospitalist, accepted the patient for admission. Plan: Transfere by EMS to [facility]. NTG paste is in plase. Pain 1-2/10. Last Recorded V/S: Last Vital Signs Temp 36.7 C 03/20/17 13:49 Pulse 68 03/20/17 13:49 Resp 14 03/20/17 13:49 BP 126/74 03/20/17 13:49 Pulse Ox 98 03/20/17 13:49 - Orders/Labs/Meds Labs: Laboratory Tests 03/20/17 03/20/17 03/20/17 Range/Units 12:50 12:50 12:50 WBC 6.6 (4.5-12.0) X10-3/uL RBC 4.00 (3.23-5.20) x10(6)uL Hgb 12.4 (11.5-15.5) g/dL Hct 36.4 (30.0-51.3) % MCV 91.0 (80-96) fL MCH 31.0 (27.7-33.6) pg MCHC 34.1 (32.2-35.4) g/dL RDW 12.1 (11.5-15.5) % Plt Count 213 (125-369) X10(3)uL MPV 7.8 (7.4-10.4) fL Neut % (Auto) 55.4 (46-82) % Lymph % (Auto) 34.6 (13-37) % [place] % (Auto) 7.7 (4-12) % Eos % (Auto) 2 (1.0-5.0) % Baso % (Auto) 1 (0-2) % Neut # (Auto) 3.7 (1.6-8.3) # Lymph # (Auto) 2.3 (0.6-5.0) # [place] # (Auto) 0.5 (0.0-1.3) # Eos # (Auto) 0.1 (0.0-0.8) # Baso # (Auto) 0.0 (0.0-0.2) # PT 10.0 (8.7-11.1) INR 0.99 (0.89-1.13) Sodium 136 (135-145) mmol/L Potassium 3.9 (3.5-5.3) mmol/L Chloride 103 D (100-110) mmol/L Carbon Dioxide 26 (23-29) mmol/L BUN 18 (8-23) mg/dL Creatinine 0.8 (0.6-1.3) mg/dL Est Cr Clr Drug Dosing TNP Estimated GFR (MDRD) > 60 (>60) BUN/Creatinine Ratio 22.5 H (9-20) Glucose 86 (80-116) mg/dL Calcium 8.8 (8.6-10.2) mg/dL Total Bilirubin 1.0 (0.1-1.3) mg/dL Direct Bilirubin < 0.1 L (0.1-0.2) mg/dL AST 30 H (5-27) IU/L ALT 36 H D (14-26) IU/L Alkaline Phosphatase 108 (56-112) IU/L Troponin I (0.02-0.06) NG/ML Total Protein 5.9 L (6.0-8.0) g/dL Albumin 3.6 (3.2-4.6) g/dL 03/20/17 Range/Units 12:50 WBC (4.5-12.0) X10-3/uL RBC (3.23-5.20) x10(6)uL Hgb (11.5-15.5) g/dL Hct (30.0-51.3) % MCV (80-96) fL MCH (27.7-33.6) pg MCHC (32.2-35.4) g/dL RDW (11.5-15.5) % Plt Count (125-369) X10(3)uL MPV (7.4-10.4) fL Neut % (Auto) (46-82) % Lymph % (Auto) (13-37) % [place] % (Auto) (4-12) % Eos % (Auto) (1.0-5.0) % Baso % (Auto) (0-2) % Neut # (Auto) (1.6-8.3) # Lymph # (Auto) (0.6-5.0) # [place] # (Auto) (0.0-1.3) # Eos # (Auto) (0.0-0.8) # Baso # (Auto) (0.0-0.2) # PT (8.7-11.1) INR (0.89-1.13) Sodium (135-145) mmol/L Potassium (3.5-5.3) mmol/L Chloride (100-110) mmol/L Carbon Dioxide (23-29) mmol/L BUN (8-23) mg/dL Creatinine (0.6-1.3) mg/dL Est Cr Clr Drug Dosing Estimated GFR (MDRD) (>60) BUN/Creatinine Ratio (9-20) Glucose (80-116) mg/dL Calcium (8.6-10.2) mg/dL Total Bilirubin (0.1-1.3) mg/dL Direct Bilirubin (0.1-0.2) mg/dL AST (5-27) IU/L ALT (14-26) IU/L Alkaline Phosphatase (56-112) IU/L Troponin I < 0.01 L (0.02-0.06) NG/ML Total Protein (6.0-8.0) g/dL Albumin (3.2-4.6) g/dL Meds: Medications Discontinued Medications Generic Name Dose Route Start Last Admin Trade Name Freq PRN Reason Stop Dose Admin Sodium Chloride 1,000 mls @ 125 mls/hr 03/20/17 14:30 Normal Saline IV ASDIRECTED [facility] Nitroglycerin 1 gm 03/20/17 14:17 03/20/17 14:30 Nitro-Bid 2% TOP 03/20/17 14:18 1 gm ONETIME ONE Administration Departure - Departure Time of Disposition: 14:50 Disposition: DC/Tfer to Other 70 Reason for Transfer *Q: Other (No university intern in this facility) Condition: Fair Clinical Impression: Chest pain Qualifiers: Chest pain type: unspecified Qualified Code(s): R07.9 - Chest pain, unspecified Referrals: PCP,Not In Area [Primary Care Provider] - Forms: ED Department Discharge
== END 2017-03-20 15:55 | disposition other institution (70) ==
LOC: FB.ED 12:46
DX: R07.9 Chest pain, unspecified (principal); E78.00 Pure hypercholesterolemia, unspecified; I10 Essential (primary) hypertension; I48.91 Unspecified atrial fibrillation; J45.909 Unspecified asthma, uncomplicated; F41.8 Other specified anxiety disorders; Z88.0 Allergy status to penicillin; Z88.8 Allergy status to other drugs, medicaments and biological substances; Z79.899 Other long term (current) drug therapy; Z79.82 Long term (current) use of aspirin; Z87.19 Personal history of other diseases of the digestive system
CPT/HCPCS: 36415; 71020; 80048; 80076; 84484; 85025; 85610; 93005; 96360; 99285; A9270; J7040

== ENCOUNTER 2017-07-03 07:08 | Day surgery (SDC) | payer OTHER ==
[2017-07-03] MEDS ORDERED: Lactated Ringers 1,000 ML IV SCH (07:15)
[2017-07-03] MEDS ORDERED: Lidocaine 2% 100 MG/5 ML Syringe IVPUSH ONE (08:30)
[2017-07-03] MEDS ORDERED: Midazolam 1 MG/ML 2 ML SDV IV ONE (08:30)
[2017-07-03] MEDS ORDERED: Propofol 200 MG/20 ML SDV IV ONE (08:30)
--- NOTE | 2017-07-03 08:55 | PCM.OPNOTE ---
- General Post-Op/Procedure Note Date of Surgery/Procedure: 07/03/17 Operative Procedure(s): egd with bypass Findings: normal appearing gastric pouch Pre Op Diagnosis: epigastric pain. hx of ulcers Post-Op Diagnosis: normal endoscopy Primary Surgeon: Curt Borden Anesthesia Provider: Iqra Houston Pathology: gastric Complications: None Condition: Good Free Text/Narrative:: see dictation
[2017-07-03 10:01] VITALS: BP 105/62
--- NOTE | 2017-07-03 14:32 | OR ---
DATE OF OPERATION: 07/03/2017 SURGEON: Curt Borden MD PROCEDURE PERFORMED: EGD with cold forceps biopsy. PREOPERATIVE DIAGNOSIS: History of epigastric pain, gastric ulcer, status post gastric bypass. POSTOPERATIVE DIAGNOSIS: Normal endoscopy. INDICATIONS FOR PROCEDURE: This is a 62-year-old white female who is referred with a history of epigastric discomfort which was made worse by eating. She has a history of a gastric bypass as well as gastric ulcerations in the past, and she was offered and accepted an EGD to determine an etiology for her pain. DESCRIPTION OF PROCEDURE: After an excellent IV sedation was administered, the bite block was inserted. The flexible endoscope was passed without difficulty down the patient's esophagus into the gastric pouch. The scope was advanced, an additional 10 cm and the following findings were noted. The Sacha limb was unremarkable. Gastric pouch was unremarkable. Biopsies were taken due to her complaint. GE junction measured at 40 cm. Esophagus unremarkable. Stomach was deflated as the scope was removed. The patient tolerated the procedure well and was taken to recovery room in good condition. /[id number] /MODL
== END 2017-07-03 10:00 | disposition home or self-care (01) ==
LOC: FB.SDS 07:08
PROVIDERS: ATTEND Surgery
DX: K29.50 Unspecified chronic gastritis without bleeding (principal); I10 Essential (primary) hypertension; I25.10 Atherosclerotic heart disease of native coronary artery without angina pectoris; E78.5 Hyperlipidemia, unspecified; J45.909 Unspecified asthma, uncomplicated; F33.9 Major depressive disorder, recurrent, unspecified; G47.30 Sleep apnea, unspecified; E66.9 Obesity, unspecified; Z68.33 Body mass index [BMI] 33.0-33.9, adult; Z88.0 Allergy status to penicillin; Z88.8 Allergy status to other drugs, medicaments and biological substances; Z79.82 Long term (current) use of aspirin; Z79.899 Other long term (current) drug therapy
CPT/HCPCS: 43239; 88305; 88342; J2250; J2704; J7120

== ENCOUNTER 2018-03-26 05:50 | Emergency (ER) | payer OTHER ==
[2018-03-26] MEDS ORDERED: HYDROmorphone 2 MG/ML SDV IM ONE (06:04)
[2018-03-26 06:43] VITALS: BP 99/56
--- NOTE | 2018-03-26 08:16 | ER ---
DATE SEEN: 03/26/2018 CHIEF COMPLAINT: Left leg pain. HISTORY OF PRESENT ILLNESS: This is a 63-year-old female with chronic back pain. She had surgery last month, but complains in the last 2 days that she has had pain in the left leg, starts from the left buttock, goes all the way down, moderate to severe pain that does not improve despite oral narcotics at home. There is no associated weakness and no urinary symptoms or fever. PAST MEDICAL HISTORY: Coronary artery disease, status post gastric bypass, lumbar fusion. ALLERGIES: She has several allergies, but denies allergy to Dilaudid. SOCIAL HISTORY: Noncontributory. PHYSICAL EXAMINATION: GENERAL: She appears uncomfortable. VITAL SIGNS: Blood pressure is 131/102, and pulse is 76. MUSCULOSKELETAL: She has poor posture. There is tenderness to palpation of the left lumbar paravertebral muscles and the left gluteus tawnya. Straight leg raising test is negative. She has normal strength and deep tendon reflexes are symmetric bilaterally. Sensation is grossly intact. IMPRESSION: Chronic radicular back pain. TREATMENT: 1. Dilaudid 2 mg IM. 2. Prednisone 10 mg b.i.d. Advised to see a physician tomorrow. Return to the ED with any worsening symptoms. /[id number] TEOFILO/ROSIO
== END 2018-03-26 06:40 | disposition home or self-care (01) ==
LOC: FB.ED 05:50
DX: G89.29 Other chronic pain (principal); M54.5 Low back pain
CPT/HCPCS: 96372; 99283; J1170

== ENCOUNTER 2019-04-29 12:58 | Observation (INO) | payer OTHER ==
[2019-04-29] MEDS ORDERED: Aspirin 81 MG Tab.Chew PO ONE (13:25)
--- NOTE | 2019-04-29 13:29 | EDM.PDOC ---
ED HPI GENERAL MEDICAL PROBLEM - General Chief Complaint: Cardiovascular Problem Stated Complaint: SOB, JAW PAIN, CHEST PAIN Time Seen by Provider: 04/29/19 12:58 Source of Information: Reports: Patient, Family () History Limitations: Reports: No Limitations - History of Present Illness INITIAL COMMENTS - FREE TEXT/NARRATIVE: 64 y.o w f with H/O Sleep apnea, chronic left shoulder pain S/P one cardiac stent placement, came to the ED due to chest pain off on in the past 4 days. Pt takes daily ASA 81 mg. She has blurred vision and neck pain off and on in te past 4 days as well. Never smoked. No trauma. No diaphoresis. No N/V/D no SOP or chest pain, no neck pain and blurred vision at this time. No other acute medical issues. BP 142/83 RR 20 Pulse ox 95% on RA. 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: Aspirin Headache Pain Score (Numeric/FACES): 2 Left jaw and shoulder Pain Score (Numeric/FACES): 2 - Related Data Allergies Allergy/AdvReac Type Severity Reaction Status Date / Time Penicillins Allergy Severe Hives Verified 04/29/19 15:46 Home Meds: Home Meds Aspirin 81 mg PO BEDTIME 07/04/16 [History] Cholecalciferol (Vitamin D3) [Vitamin D3] 1,000 unit PO DAILY 07/04/16 [History] Gabapentin [Neurontin] 900 mg PO BEDTIME 07/04/16 [History] Metoprolol Tartrate 25 mg PO BID 07/04/16 [History] Prazosin HCl [Prazosin] 4 mg PO BEDTIME 07/04/16 [History] atorvaSTATin [Lipitor] 40 mg PO BEDTIME 07/04/16 [History] lamoTRIgine [Lamotrigine] 150 mg PO BEDTIME 07/04/16 [History] lamoTRIgine [Lamotrigine] 100 mg PO DAILY 07/05/16 [History] Venlafaxine [Effexor XR] 150 mg PO DAILY 07/06/16 [History] Beta-Carotene(A) W-C & E/Min [Vision Vitamins] 1 each PO DAILY 02/15/17 [History ] Montelukast Sodium 10 mg PO BEDTIME 02/15/17 [History] Multivitamin with Minerals [Multivitamins with Minerals] 1 tab PO DAILY [History] Omeprazole 20 mg PO BIDMEALS 02/15/17 [History] amLODIPine [Norvasc] 5 mg PO BEDTIME 03/20/17 [History] Nitroglycerin [Nitrostat] 0.4 mg SL Q5M PRN 07/02/17 [History] Albuterol [Proventil HFA] 2 puff INH Q4H PRN 08/07/18 [History] Baclofen 10 mg PO BEDTIME 08/07/18 [History] Calcium Carbonate [Calcium] 600 mg PO DAILY 08/07/18 [History] Bifidobacterium Infantis [Digestive Probiotic] 1 cap PO DAILY 04/29/19 [History] Past Medical History - Past Health History Medical/Surgical History: Denies Medical/Surgical History HEENT History: Reports: Impaired Vision, Macular Degeneration, Other (See Below) Other HEENT History: SURGERY FOR NASAL FX. HAS DEVIATED SEPTUM Cardiovascular History: Reports: Afib, Angina, CAD, High Cholesterol, Hypertension, Stents Respiratory History: Reports: Asthma, Sleep Apnea Gastrointestinal History: Reports: Chronic Constipation, Diverticulosis, Gastritis, GERD, GI Bleed, PUD Other Gastrointestinal History: GI BLEED 2015. EGD SHOWED ULCER. 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 LAST SEIZURE 2013 Psychiatric History: Reports: Anxiety, Depression, Panic Attack Endocrine/Metabolic History: Reports: None, Obesity/BMI 30+ Other Endocrine/Metabolic History: STATES OCCASIONALLY GET HYPOGLYCEMIC Hematologic History: Reports: Anemia, Other (See Below) Other Hematologic History: since GI bleed Immunologic History: Reports: None Oncologic (Cancer) History: Reports: None Dermatologic History: Reports: None - Infectious Disease History Infectious Disease History: Reports: Chicken Pox, Measles, Mumps - Past Surgical History Head Surgeries/Procedures: Reports: None HEENT Surgical History: Reports: Naso-Sinus Surgery, Tonsillectomy Cardiovascular Surgical History: Reports: Coronary Artery Stent Other Cardiovascular Surgeries/Procedures: STENT X1, RECCENT ANGIORAM 2017. Respiratory Surgical History: Reports: None GI Surgical History: Reports: Appendectomy, Bariatric Procedure, Cholecystectomy , Colonoscopy, EGD, Other (See Below) Other GI Surgeries/Procedures: EXPLORATORY LAPAROTOMY, LAPAROTOMY ADHESION REMOVAL. GASTRIC BIPASS STATES 2009. OPEN GALL BLADDER SURGERY. Female Surgical History: Reports: D&C, Hysterectomy, Salpingo-Oophorectomy Neurological Surgical History: Reports: None Musculoskeletal Surgical History: Reports: Arthroscopic Knee, Carpal Tunnel, Other (See Below) Other Musculoskeletal Surgeries/Procedures:: NECK SURGERY X2. DENIES HARDWARE. REMOVAL OF TAILBONE CHILD. LEFT CARPAL TUNNEL RELEASE. Back surgery 2017 STATES HAS HARDWARE IN, LOW BACK. Social & Family History - Family History Family Medical History: Noncontributory Cardiac: Reports: [place] Respiratory: Reports: Asthma GI: Reports: Celiac Disease, Hepatitis, Irritable Bowel Syndrome, Jaundice OBGYN: Reports: Fibroids Musculoskeletal: Reports: Osteoporosis Neurological: Reports: CVA Psychiatric: Reports: ADHD, Bipolar, Depression, Emotional Problems, Learning Disability, Mood Swings Oncologic: Reports: Hodgkin's Lymphoma - Caffeine Use Caffeine Use: Reports: Coffee, Soda, Tea Caffeine Use Comment: 2 cups coffee and sometimes up to 2 sodas a day ED ROS GENERAL - Review of Systems Review Of Systems: See Below Constitutional: Reports: No Symptoms HEENT: Reports: Other (occ blurred vision with neck pain) Respiratory: Reports: No Symptoms Cardiovascular: Reports: Chest Pain Endocrine: Reports: No Symptoms GI/Abdominal: Reports: No Symptoms : Reports: No Symptoms Musculoskeletal: Reports: Shoulder Pain (H/O left shoulder pain for some time) Skin: Reports: No Symptoms Neurological: Reports: Other (blurred vision with left necc pain, occ) Psychiatric: Reports: No Symptoms Hematologic/Lymphatic: Reports: No Symptoms Immunologic: Reports: No Symptoms ED EXAM, GENERAL - Physical Exam Exam: See Below Exam Limited By: No Limitations General Appearance: Alert, WD/WN, Mild Distress (no C/C no neck pain or blurred vision now. ) Eye Exam: Bilateral Eye: EOMI, Normal Inspection Ears: Normal External Exam Ear Exam: Bilateral Ear: Auricle Normal Nose: Normal Inspection, Normal Mucosa, No Blood Throat/Mouth: Normal Lips, Normal Voice, No Airway Compromise, Other (H/O Sleep Apnea) Head: Atraumatic, Normocephalic Neck: Normal Inspection, Supple, Non-Tender Respiratory/Chest: No Respiratory Distress, Lungs Clear, Normal Breath Sounds Cardiovascular: Normal Peripheral Pulses, Regular Rate, Rhythm, No Edema, No Gallop Peripheral Pulses: 2+: Radial (L) GI/Abdominal: Normal Bowel Sounds, Soft, Non-Tender, No Organomegaly, No Mass, Pelvis Stable (Female) Exam: Deferred Rectal (Female) Exam: Deferred Back Exam: Normal Inspection, Full Range of Motion Extremities: Normal Inspection, Normal Range of Motion, Non-Tender Neurological: Alert, Oriented, CN II-XII Intact, Normal Cognition, Normal Gait Psychiatric: Normal Affect, Normal Mood Skin Exam: Warm, Dry, Intact, Normal Color, No Rash Lymphatic: No Adenopathy EKG INTERPRETATION EKG Date: 04/29/19 Time: 13:05 Rhythm: NSR Rate (Beats/Min): 86 [place]: Normal P-Wave: Present QRS: Normal ST-T: Normal QT: Normal Comparison: NA - No Prior EKG Course - Vital Signs Text/Narrative:: 64 y.o w f with H/O Sleep apnea, chronic left shoulder pain S/P one cardiac stent placement, came to the ED due to chest pain off on in the past 4 days. Pt takes daily ASA 81 mg. She has blurred vision and neck pain off and on in te past 4 days as well. Never smoked. No trauma. No diaphoresis. No N/V/D no SOP or chest pain, no neck pain and blurred vision at this time. No other acute medical issues. BP 142/83 RR 20 Pulse ox 95% on RA. Temp 36.9 Pulse 84 PE: WNWD WF in NAD Imaging: CXR: NAD as per RAD Labs: CBC, BMP, D Dimer, Troponin were neg Impression: Ches/neck pain with occ blurred vision (DDx: Cluster headache) chronic left shoulder pain. H/O stent placement, H/O Slep apnea Tx: ASA Reexam: Iproved, no symptoms, pain free since in the ED. 2.50 pm Consultation: Dr. Interiano, Hospitalist: Accepted the pt for admission. Plan: Admit to tele on OBS Last Recorded V/S: Last Vital Signs Temp 36.4 C 04/30/19 04:30 Pulse 58 L 04/30/19 04:30 Resp 18 04/30/19 04:30 BP 104/65 04/30/19 04:30 Pulse Ox 97 04/30/19 04:30 - Orders/Labs/Meds Orders: Active Orders 24 hr Category Date Time Status EKG 12 Lead [EK] Routine Ther 04/29/19 13:17 Ordered Medication Orders Albuterol (Ventolin Hfa) 0 gm INH Q4H PRN PRN Reason: Dyspnea Amlodipine Besylate (Norvasc) 5 mg PO BEDTIME [facility] Last Admin: 04/29/19 21:09 Dose: 5 mg Aspirin (Aspirin) 81 mg PO BEDTIME [facility] Last Admin: 04/29/19 20:59 Dose: 81 mg Atorvastatin Calcium (Lipitor) 40 mg PO BEDTIME [facility] Last Admin: 04/29/19 21:12 Dose: 40 mg Baclofen (Lioresal) 10 mg PO BEDTIME [facility] Last Admin: 04/29/19 21:15 Dose: 10 mg Calcium Carbonate/Glycine (Oyster Shell Calcium) 500 mg PO DAILY [facility] Cholecalciferol (Vitamin D3) 25 mcg PO DAILY [facility] Gabapentin (Neurontin) 900 mg PO BEDTIME [facility] Last Admin: 04/29/19 21:17 Dose: 900 mg Ketorolac Tromethamine (Toradol) 15 mg IVPUSH Q6H PRN PRN Reason: Breakthrough Pain Stop: 05/04/19 20:09 Lamotrigine (Lamotrigine) 100 mg PO DAILY [facility] Lamotrigine (Lamotrigine) 150 mg PO BEDTIME [facility] Last Admin: 04/29/19 21:01 Dose: 150 mg Metoprolol Tartrate (Lopressor) 25 mg PO BID [facility] Last Admin: 04/29/19 21:03 Dose: 25 mg Montelukast Sodium (Singulair) 10 mg PO BEDTIME [facility] Last Admin: 04/29/19 21:13 Dose: 10 mg Multivitamins (Thera) 1 each PO DAILY [facility] Multivitamins/Minerals (Prosight) 1 tab PO DAILY [facility] Nitroglycerin (Nitrostat) 0.4 mg SL Q5M PRN PRN Reason: Chest Pain Non-Formulary Medication (Bifidobacterium Infantis [Digestive Probiotic]) 1 cap PO DAILY [facility] Pantoprazole Sodium (Protonix) 40 mg PO BIDMEALS [facility] Last Admin: 04/29/19 21:23 Dose: 40 mg Prazosin HCl (Minpress) 4 mg PO BEDTIME [facility] Last Admin: 04/29/19 21:07 Dose: 4 mg Sodium Chloride (Saline Flush) 10 ml FLUSH ASDIRECTED PRN PRN Reason: Keep Vein Open Last Admin: 04/29/19 18:27 Dose: 10 ml Venlafaxine HCl (Effexor Xr) 150 mg PO DAILY [facility] Labs: Laboratory Tests 04/29/19 04/29/19 04/29/19 Range/Units 13:42 13:42 13:42 WBC 8.1 (4.5-12.0) X10-3/uL RBC 3.87 (3.23-5.20) x10(6)uL Hgb 12.5 (11.5-15.5) g/dL Hct 36.8 (30.0-51.3) % MCV 95.1 (80-96) fL MCH 32.3 (27.7-33.6) pg MCHC 33.9 (32.2-35.4) g/dL RDW 12.7 (11.5-15.5) % Plt Count 209 (125-369) X10(3)uL MPV 8.0 (7.4-10.4) fL Neut % (Auto) 77.2 (46-82) % Lymph % (Auto) 18.0 (13-37) % [place] % (Auto) 3.1 L (4-12) % Eos % (Auto) 1 (1.0-5.0) % Baso % (Auto) 1 (0-2) % Neut # (Auto) 6.2 (1.6-8.3) # Lymph # (Auto) 1.5 (0.6-5.0) # [place] # (Auto) 0.3 (0.0-1.3) # Eos # (Auto) 0.1 (0.0-0.8) # Baso # (Auto) 0.0 (0.0-0.2) # D-Dimer, Quantitative 0.51 (0.0-0.59) mg/LFEU Sodium 145 (135-145) mmol/L Potassium 3.8 (3.5-5.3) mmol/L Chloride 109 (100-110) mmol/L Carbon Dioxide 25 (21-32) mmol/L BUN 18 (7-18) mg/dL Creatinine 1.0 (0.55-1.02) mg/dL Est Cr Clr Drug Dosing 44.95 mL/min Estimated GFR (MDRD) 56 L (>60) BUN/Creatinine Ratio 18.0 (9-20) Glucose 162 H (80-116) mg/dL Calcium 8.6 (8.6-10.2) mg/dL Troponin I (<0.017-0.056) ng/mL 04/29/19 Range/Units 13:42 WBC (4.5-12.0) X10-3/uL RBC (3.23-5.20) x10(6)uL Hgb (11.5-15.5) g/dL Hct (30.0-51.3) % MCV (80-96) fL MCH (27.7-33.6) pg MCHC (32.2-35.4) g/dL RDW (11.5-15.5) % Plt Count (125-369) X10(3)uL MPV (7.4-10.4) fL Neut % (Auto) (46-82) % Lymph % (Auto) (13-37) % [place] % (Auto) (4-12) % Eos % (Auto) (1.0-5.0) % Baso % (Auto) (0-2) % Neut # (Auto) (1.6-8.3) # Lymph # (Auto) (0.6-5.0) # [place] # (Auto) (0.0-1.3) # Eos # (Auto) (0.0-0.8) # Baso # (Auto) (0.0-0.2) # D-Dimer, Quantitative (0.0-0.59) mg/LFEU Sodium (135-145) mmol/L Potassium (3.5-5.3) mmol/L Chloride (100-110) mmol/L Carbon Dioxide (21-32) mmol/L BUN (7-18) mg/dL Creatinine (0.55-1.02) mg/dL Est Cr Clr Drug Dosing mL/min Estimated GFR (MDRD) (>60) BUN/Creatinine Ratio (9-20) Glucose (80-116) mg/dL Calcium (8.6-10.2) mg/dL Troponin I < 0.017 L (<0.017-0.056) ng/mL Meds: Medications Generic Name Dose Route Start Last Admin Trade Name Freq PRN Reason Stop Dose Admin Albuterol 0 gm 04/29/19 20:11 Ventolin Hfa INH Q4H PRN Dyspnea Amlodipine Besylate 5 mg 04/29/19 21:00 04/29/19 21:09 Norvasc PO 5 mg BEDTIME [facility] Administration Aspirin 81 mg 04/29/19 21:00 04/29/19 20:59 Aspirin PO 81 mg BEDTIME [facility] Administration Atorvastatin Calcium 40 mg 04/29/19 21:00 04/29/19 21:12 Lipitor PO 40 mg BEDTIME [facility] Administration Baclofen 10 mg 04/29/19 21:00 04/29/19 21:15 Lioresal PO 10 mg BEDTIME [facility] Administration Calcium Carbonate/Glycine 500 mg 04/30/19 09:00 Oyster Shell Calcium PO DAILY [facility] Cholecalciferol 25 mcg 04/30/19 09:00 Vitamin D3 PO DAILY [facility] Gabapentin 900 mg 04/29/19 21:00 04/29/19 21:17 Neurontin PO 900 mg BEDTIME [facility] Administration Ketorolac Tromethamine 15 mg 04/29/19 20:09 Toradol IVPUSH 05/04/19 20:09 Q6H PRN Breakthrough Pain Lamotrigine 100 mg 04/30/19 09:00 Lamotrigine PO DAILY [facility] Lamotrigine 150 mg 04/29/19 21:00 04/29/19 21:01 Lamotrigine PO 150 mg BEDTIME [facility] Administration Metoprolol Tartrate 25 mg 04/29/19 21:00 04/29/19 21:03 Lopressor PO 25 mg BID [facility] Administration Montelukast Sodium 10 mg 04/29/19 21:00 04/29/19 21:13 Singulair PO 10 mg BEDTIME [facility] Administration Multivitamins 1 each 04/30/19 09:00 Thera PO DAILY [facility] Multivitamins/Minerals 1 tab 04/30/19 09:00 Prosight PO DAILY [facility] Nitroglycerin 0.4 mg 04/29/19 20:11 Nitrostat SL Q5M PRN Chest Pain Non-Formulary Medication 1 cap 04/30/19 09:00 Bifidobacterium Infantis [Digestive Probiotic] PO DAILY [facility] Pantoprazole Sodium 40 mg 04/30/19 08:00 04/29/19 21:23 Protonix PO 40 mg BIDMEALS [facility] Administration Prazosin HCl 4 mg 04/29/19 21:00 04/29/19 21:07 Minpress PO 4 mg BEDTIME [facility] Administration Sodium Chloride 10 ml 04/29/19 14:57 04/29/19 18:27 Saline Flush FLUSH 10 ml ASDIRECTED PRN Administration Keep Vein Open Venlafaxine HCl 150 mg 04/30/19 09:00 Effexor Xr PO DAILY [facility] Discontinued Medications Generic Name Dose Route Start Last Admin Trade Name Freq PRN Reason Stop Dose Admin Aspirin 324 mg 04/29/19 13:25 04/29/19 13:25 Aspirin PO 04/29/19 13:26 324 mg ONETIME ONE Administration Sodium Chloride 1,000 mls @ 125 mls/hr 04/29/19 18:30 04/29/19 18:28 Normal Saline IV 125 mls/hr ASDIRECTED [facility] Administration Nitroglycerin 1 gm 04/29/19 18:22 04/29/19 18:29 Nitro-Bid 2% TOP 04/29/19 18:23 1 gm ONETIME ONE Administration Departure - Departure Time of Disposition: 20:00 Disposition: Refer to Observation Condition: Fair Clinical Impression: Jaw pain Chest pain Qualifiers: Chest pain type: unspecified Qualified Code(s): R07.9 - Chest pain, unspecified - My Orders Last 24 Hours: My Active Orders 04/29/19 13:17 EKG 12 Lead [EK] Routine - Assessment/Plan Last 24 Hours: My Active Orders 04/29/19 13:17 EKG 12 Lead [EK] Routine
[2019-04-29] MEDS ORDERED: Sodium Chloride 0.9% 10 ML Syringe FLUSH PRN (14:57)
--- NOTE | 2019-04-29 15:10 | CR ---
INDICATION: Jaw pain, left shoulder pain. CHEST: PA and lateral views of the chest were obtained 04/29/19 - no comparisons. The heart is normal in size and shape. The aorta is slightly tortuous. Overlying EKG leads are noted. Somewhat flattened diaphragm leaves with prominent AP diameter and mild hyperaeration suggests COPD. An active infiltrate or effusion was not identified. Dextroconvex scoliosis is noted at the thoracolumbar spine of mild degree. IMPRESSION: 1. No acute process. 2. ASD aorta. 3. Probable COPD - correlate clinically. 4. Mild scoliosis thoracolumbar spine. MTDD
[2019-04-29] MEDS ORDERED: Nitroglycerin 2% Oint 1 GM UD Packet TOP ONE (18:22)
[2019-04-29] MEDS ORDERED: Sodium Chloride 0.9% 1,000 ML IV SCH (18:30)
[2019-04-29] MEDS ORDERED: Ketorolac 15 MG/ML SDV IVPUSH PRN (20:09)
[2019-04-29] MEDS ORDERED: Nitroglycerin 0.4 MG Tab.SL SL PRN (20:11)
[2019-04-29] MEDS ORDERED: Albuterol 8 GM Inhaler INH PRN (20:11)
--- NOTE | 2019-04-29 20:18 | PCM.HP ---
H&P History of Present Illness - General Date of Service: 04/29/19 Admit Problem/Dx: Admission Diagnosis/Problem Admission Diagnosis/Problem Chest pain Source of Information: Patient, Old Records History Limitations: Reports: No Limitations - History of Present Illness Initial Comments - Free Text/Narative: 64 y.o w f with H/O Sleep apnea, chronic left shoulder pain S/P one cardiac stent placement, came to the ED due to left side neck pain off on in the past 4 days. Pt takes daily ASA 81 mg. She has blurred vision and neck pain radiates to the jaw and head. Never smoked.Nothing helps. No trauma. No diaphoresis. No N /V/D no SOP or chest pain. No other acute medical issues. BP 142/83 RR 20 Pulse ox 95% on RA. Temp 36.9 Pulse 84 in the ED.Her past medical history is consisting of coronary artery disease, dyslipidemia, sleep apnea, depression, and gastric bypass. Headache Pain Score (Numeric/FACES): 2 Left jaw and shoulder Pain Score (Numeric/FACES): 2 - Related Data Allergies/Adverse Reactions: Allergies Allergy/AdvReac Type Severity Reaction Status Date / Time Penicillins Allergy Severe Hives Verified 04/29/19 15:46 Home Medications: Home Meds Aspirin 81 mg PO BEDTIME 07/04/16 [History] Cholecalciferol (Vitamin D3) [Vitamin D3] 1,000 unit PO DAILY 07/04/16 [History] Gabapentin [Neurontin] 900 mg PO BEDTIME 07/04/16 [History] Metoprolol Tartrate 25 mg PO BID 07/04/16 [History] Prazosin HCl [Prazosin] 4 mg PO BEDTIME 07/04/16 [History] atorvaSTATin [Lipitor] 40 mg PO BEDTIME 07/04/16 [History] lamoTRIgine [Lamotrigine] 150 mg PO BEDTIME 07/04/16 [History] lamoTRIgine [Lamotrigine] 100 mg PO DAILY 07/05/16 [History] Venlafaxine [Effexor XR] 150 mg PO DAILY 07/06/16 [History] Beta-Carotene(A) W-C & E/Min [Vision Vitamins] 1 each PO DAILY 02/15/17 [History ] Montelukast Sodium 10 mg PO BEDTIME 02/15/17 [History] Multivitamin with Minerals [Multivitamins with Minerals] 1 tab PO DAILY [History] Omeprazole 20 mg PO BIDMEALS 02/15/17 [History] amLODIPine [Norvasc] 5 mg PO BEDTIME 03/20/17 [History] Nitroglycerin [Nitrostat] 0.4 mg SL Q5M PRN 07/02/17 [History] Albuterol [Proventil HFA] 2 puff INH Q4H PRN 08/07/18 [History] Baclofen 10 mg PO BEDTIME 08/07/18 [History] Calcium Carbonate [Calcium] 600 mg PO DAILY 08/07/18 [History] Bifidobacterium Infantis [Digestive Probiotic] 1 cap PO DAILY 04/29/19 [History] Past Medical History - Past Health History Medical/Surgical History: Denies Medical/Surgical History HEENT History: Reports: Impaired Vision, Macular Degeneration, Other (See Below) Other HEENT History: SURGERY FOR NASAL FX. HAS DEVIATED SEPTUM Cardiovascular History: Reports: Afib, Angina, CAD, High Cholesterol, Hypertension, Stents Respiratory History: Reports: Asthma, Sleep Apnea Gastrointestinal History: Reports: Chronic Constipation, Diverticulosis, Gastritis, GERD, GI Bleed, PUD Other Gastrointestinal History: GI BLEED 2015. EGD SHOWED ULCER. Genitourinary History: Reports: Pyelonephritis ACCURACY EXPERT History: Reports: Other OB/BYN History: II PARA II Musculoskeletal History: Reports: Arthritis, Back Pain, Chronic, RA Neurological History: Reports: Concussion, Seizure Other Neuro History: "a couple mini-seizures". LAST SEIZURE 2013 Psychiatric History: Reports: Anxiety, Depression, Panic Attack Endocrine/Metabolic History: Reports: None, Obesity/BMI 30+ Other Endocrine/Metabolic History: STATES OCCASIONALLY GET HYPOGLYCEMIC Hematologic History: Reports: Anemia, Other (See Below) Other Hematologic History: since GI bleed Immunologic History: Reports: None Oncologic (Cancer) History: Reports: None Dermatologic History: Reports: None - Infectious Disease History Infectious Disease History: Reports: Chicken Pox, Measles, Mumps - Past Surgical History Head Surgeries/Procedures: Reports: None HEENT Surgical History: Reports: Naso-Sinus Surgery, Tonsillectomy Cardiovascular Surgical History: Reports: Coronary Artery Stent Other Cardiovascular Surgeries/Procedures: STENT X1, RECCENT ANGIORAM 2017. Respiratory Surgical History: Reports: None GI Surgical History: Reports: Appendectomy, Bariatric Procedure, Cholecystectomy , Colonoscopy, EGD, Other (See Below) Other GI Surgeries/Procedures: EXPLORATORY LAPAROTOMY, LAPAROTOMY ADHESION REMOVAL. GASTRIC BIPASS STATES 2010. OPEN GALL BLADDER SURGERY. Female Surgical History: Reports: D&C, Hysterectomy, Salpingo-Oophorectomy Neurological Surgical History: Reports: None Musculoskeletal Surgical History: Reports: Arthroscopic Knee, Carpal Tunnel, Other (See Below) Other Musculoskeletal Surgeries/Procedures:: NECK SURGERY X2. DENIES HARDWARE. REMOVAL OF TAILBONE CHILD. LEFT CARPAL TUNNEL RELEASE. Back surgery 2017 STATES HAS HARDWARE IN, LOW BACK. Social & Family History - Family History Family Medical History: Noncontributory Cardiac: Reports: [place] Respiratory: Reports: Asthma GI: Reports: Celiac Disease, Hepatitis, Irritable Bowel Syndrome, Jaundice OBGYN: Reports: Fibroids Musculoskeletal: Reports: Osteoporosis Neurological: Reports: CVA Psychiatric: Reports: ADHD, Bipolar, Depression, Emotional Problems, Learning Disability, Mood Swings Oncologic: Reports: Hodgkin's Lymphoma - Tobacco Use Smoking Status *Q: Never Smoker Second Hand Smoke Exposure: No - Caffeine Use Caffeine Use: Reports: Coffee, Soda, Tea Caffeine Use Comment: 2 cups coffee and sometimes up to 2 sodas a day - Recreational Drug Use Recreational Drug Use: No H&P Review of Systems - Review of Systems: Review Of Systems: ROS reveals no pertinent complaints other than HPI. Exam - Exam Exam: See Below - Vital Signs Vital Signs: Last Vital Signs Temp 98.1 F 04/29/19 15:16 Pulse 90 04/29/19 18:55 Resp 20 04/29/19 16:45 BP 156/84 H 04/29/19 18:55 Pulse Ox 97 04/29/19 18:17 Weight: 89.312 kg - Exam General: Alert, Oriented, 4 HEENT: PERRLA, Hearing Intact, Mucosa Moist & [place], Nares Patent, Normal Nasal Septum, Posterior Pharynx Clear, Conjunctiva Clear, EOMI, EACs Clear, TMs Clear Neck: Supple, Trachea Midline, 2 Lungs: Clear to Auscultation, Normal Respiratory Effort Cardiovascular: Regular Rate, Regular Rhythm GI/Abdominal Exam: Normal Bowel Sounds, Soft, Non-Tender, No Organomegaly, No Distention, No Abnormal Bruit, No Mass, Pelvis Stable (Female) Exam: Deferred Rectal (Female) Exam: Deferred Back Exam: Normal Inspection, Full Range of Motion, NT Extremities: Normal Inspection, Normal Range of Motion, Non-Tender, No Pedal Edema, Normal Capillary Refill Skin: Warm, Dry, Intact Neurological: Cranial Nerves Intact, Reflexes Equal Bilateral Neuro Extensive - Mental Status: Alert, Oriented x3, Normal Mood/Affect, Normal Cognition Neuro Extensive - Motor, Sensory, Reflexes: CN II-XII Intact, Normal Gait, Normal Reflexes Psychiatric: Alert, Normal Affect, Normal Mood - Patient Data Lab Results Last 24 hrs: Laboratory Results - last 24 hr 04/29/19 04/29/19 04/29/19 Range/Units 13:42 13:42 13:42 WBC 8.1 (4.5-12.0) X10-3/uL RBC 3.87 (3.23-5.20) x10(6)uL Hgb 12.5 (11.5-15.5) g/dL Hct 36.8 (30.0-51.3) % MCV 95.1 (80-96) fL MCH 32.3 (27.7-33.6) pg MCHC 33.9 (32.2-35.4) g/dL RDW 12.7 (11.5-15.5) % Plt Count 209 (125-369) X10(3)uL MPV 8.0 (7.4-10.4) fL Neut % (Auto) 77.2 (46-82) % Lymph % (Auto) 18.0 (13-37) % [place] % (Auto) 3.1 L (4-12) % Eos % (Auto) 1 (1.0-5.0) % Baso % (Auto) 1 (0-2) % Neut # (Auto) 6.2 (1.6-8.3) # Lymph # (Auto) 1.5 (0.6-5.0) # [place] # (Auto) 0.3 (0.0-1.3) # Eos # (Auto) 0.1 (0.0-0.8) # Baso # (Auto) 0.0 (0.0-0.2) # D-Dimer, Quantitative 0.51 (0.0-0.59) mg/LFEU Sodium 145 (135-145) mmol/L Potassium 3.8 (3.5-5.3) mmol/L Chloride 109 (100-110) mmol/L Carbon Dioxide 25 (21-32) mmol/L BUN 18 (7-18) mg/dL Creatinine 1.0 (0.55-1.02) mg/dL Est Cr Clr Drug Dosing 44.95 mL/min Estimated GFR (MDRD) 56 L (>60) BUN/Creatinine Ratio 18.0 (9-20) Glucose 162 H (80-116) mg/dL Calcium 8.6 (8.6-10.2) mg/dL Troponin I (<0.017-0.056) ng/mL 04/29/19 04/29/19 Range/Units 13:42 18:40 WBC (4.5-12.0) X10-3/uL RBC (3.23-5.20) x10(6)uL Hgb (11.5-15.5) g/dL Hct (30.0-51.3) % MCV (80-96) fL MCH (27.7-33.6) pg MCHC (32.2-35.4) g/dL RDW (11.5-15.5) % Plt Count (125-369) X10(3)uL MPV (7.4-10.4) fL Neut % (Auto) (46-82) % Lymph % (Auto) (13-37) % [place] % (Auto) (4-12) % Eos % (Auto) (1.0-5.0) % Baso % (Auto) (0-2) % Neut # (Auto) (1.6-8.3) # Lymph # (Auto) (0.6-5.0) # [place] # (Auto) (0.0-1.3) # Eos # (Auto) (0.0-0.8) # Baso # (Auto) (0.0-0.2) # D-Dimer, Quantitative (0.0-0.59) mg/LFEU Sodium (135-145) mmol/L Potassium (3.5-5.3) mmol/L Chloride (100-110) mmol/L Carbon Dioxide (21-32) mmol/L BUN (7-18) mg/dL Creatinine (0.55-1.02) mg/dL Est Cr Clr Drug Dosing mL/min Estimated GFR (MDRD) (>60) BUN/Creatinine Ratio (9-20) Glucose (80-116) mg/dL Calcium (8.6-10.2) mg/dL Troponin I < 0.017 L < 0.017 L (<0.017-0.056) ng/mL Result Diagrams: 04/29/19 13:42 04/29/19 13:42 EKG INTERPRETATION Rhythm: NSR - Problem List (1) Neck pain SNOMED Code(s): 17519099 ICD Code: M54.2 - CERVICALGIA Status: Acute Current Visit: Yes (2) Headache SNOMED Code(s): 07218184 ICD Code: R51 - HEADACHE Status: Acute Current Visit: Yes Qualifiers: Headache type: unspecified (3) HTN (hypertension) SNOMED Code(s): 36069394 ICD Code: I10 - ESSENTIAL (PRIMARY) HYPERTENSION Status: Chronic Current Visit: Yes Qualifiers: Hypertension type: essential hypertension Qualified Code(s): I10 - Essential (primary) hypertension (4) CAD (coronary artery disease) SNOMED Code(s): 83953850 ICD Code: I25.10 - ATHSCL HEART DISEASE OF [place] CORONARY ARTERY W/O ANG PCTRS Status: Acute Current Visit: Yes Qualifiers: Coronary Disease-Associated Artery/Lesion type: [place] artery [place] vs. transplanted heart: [place] heart Associated angina: without angina Qualified Code(s): I25.10 - Atherosclerotic heart disease of [place] coronary artery without angina pectoris (5) Obesity SNOMED Code(s): 390317923, 641206631 ICD Code: E66.9 - OBESITY, UNSPECIFIED Status: Acute Current Visit: Yes Qualifiers: Obesity type: due to excess calories Problem List Initiated/Reviewed/Updated: Yes Orders Last 24hrs: Active Orders 24 hr Category Date Time Status Patient Status [ADT] Routine ADT 04/29/19 14:57 Active Cardiac Monitoring [RC] CONTINUOUS Care 04/29/19 15:00 Active Oxygen Therapy [RC] PRN Care 04/29/19 14:57 Active Pulse Oximetry [RC] ASDIRECTED Care 04/29/19 15:33 Active Up With Assistance [RC] ASDIRECTED Care 04/29/19 14:57 Active Vital Signs [RC] 00,04,08,12,16,20 Care 04/29/19 14:57 Active Heart Healthy Diet [DIET] Diet 04/29/19 Breakfast Active Ang Neck w Cont [MR] Routine Exams 04/30/19 08:00 Ordered Max Facial Sinus wo Cont [CT] Routine Exams 04/29/19 18:24 Taken BASIC METABOLIC PANEL,BMP [CHEM] AM Lab 04/30/19 05:11 Ordered CBC WITH AUTO DIFF [HEME] AM Lab 04/30/19 05:11 Ordered TROPONIN I [CHEM] AM Lab 04/30/19 05:11 Ordered Albuterol [Ventolin HFA] Med 04/29/19 20:11 Ordered 2 puff INH Q4H PRN Aspirin Med 04/29/19 21:00 Ordered 81 mg PO BEDTIME Baclofen [Lioresal] Med 04/29/19 21:00 Ordered 10 mg PO BEDTIME Beta-Carotene(A) W-C & E/Min [Vision Vitamins] Med 04/30/19 09:00 Ordered 1 each PO DAILY Bifidobacterium Infantis [Digestive Probiotic] Med 04/30/19 09:00 Ordered 1 cap PO DAILY Calcium Carbonate [Calcium] Med 04/30/19 09:00 Ordered 600 mg PO DAILY Cholecalciferol (Vitamin D3) [Vitamin D3] Med 04/30/19 09:00 Ordered 1,000 unit PO DAILY Gabapentin [Neurontin] Med 04/29/19 21:00 Ordered 900 mg PO BEDTIME Ketorolac [Toradol] Med 04/29/19 20:09 Ordered 15 mg IVPUSH Q6H PRN Metoprolol Tartrate [Lopressor] Med 04/29/19 21:00 Ordered 25 mg PO BID Montelukast [Singulair] Med 04/29/19 21:00 Ordered 10 mg PO BEDTIME Multivitamin with Minerals [Multivitamins with Minerals Med 04/30/19 09:00 Ordered ] 1 tab PO DAILY Nitroglycerin [Nitrostat] Med 04/29/19 20:11 Ordered 0.4 mg SL Q5M PRN Omeprazole [Omeprazole] Med 04/30/19 08:00 Ordered 20 mg PO BIDMEALS Prazosin HCl [Prazosin] Med 04/29/19 21:00 Ordered 4 mg PO BEDTIME Sodium Chloride 0.9% [Saline Flush] Med 04/29/19 14:57 Active 10 ml FLUSH ASDIRECTED PRN Venlafaxine [Effexor XR] Med 04/30/19 09:00 Ordered 150 mg PO DAILY amLODIPine [Norvasc] Med 04/29/19 21:00 Ordered 5 mg PO BEDTIME atorvaSTATin [Lipitor] Med 04/29/19 21:00 Ordered 40 mg PO BEDTIME lamoTRIgine Med 04/30/19 09:00 Ordered 100 mg PO DAILY lamoTRIgine Med 04/29/19 21:00 Ordered 150 mg PO BEDTIME Peripheral IV Insertion Adult [OM.PC] Routine Oth 04/29/19 14:57 Ordered Resuscitation Status Routine Resus Stat 04/29/19 14:57 Ordered EKG 12 Lead [EK] Routine Ther 04/29/19 13:17 Ordered EKG 12 Lead [EK] Routine Ther 04/29/19 18:10 Ordered Medication Orders Albuterol (Ventolin Hfa) gm INH Q4H PRN PRN Reason: Dyspnea Amlodipine Besylate (Norvasc) 5 mg PO BEDTIME [facility] Aspirin (Aspirin) 81 mg PO BEDTIME [facility] Baclofen (Lioresal) 10 mg PO BEDTIME [facility] Gabapentin (Neurontin) 900 mg PO BEDTIME [facility] Ketorolac Tromethamine (Toradol) 15 mg IVPUSH Q6H PRN PRN Reason: Breakthrough Pain Stop: 05/04/19 20:09 Lamotrigine (Lamotrigine) 100 mg PO DAILY [facility] Lamotrigine (Lamotrigine) 150 mg PO BEDTIME [facility] Metoprolol Tartrate (Lopressor) 25 mg PO BID [facility] Montelukast Sodium (Singulair) 10 mg PO BEDTIME [facility] Nitroglycerin (Nitrostat) 0.4 mg SL Q5M PRN PRN Reason: Chest Pain Non-Formulary Medication (Atorvastatin [Lipitor]) 40 mg PO BEDTIME [facility] Non-Formulary Medication (Beta-Carotene(A) W-C & E/Min [Vision Vitamins]) 1 each PO DAILY [facility] Non-Formulary Medication (Bifidobacterium Infantis [Digestive Probiotic]) 1 cap PO DAILY [facility] Non-Formulary Medication (Calcium Carbonate [Calcium]) 600 mg PO DAILY [facility] Non-Formulary Medication (Cholecalciferol (Vitamin D3) [Vitamin D3]) 1,000 unit PO DAILY [facility] Non-Formulary Medication (Multivitamin With Minerals [Multivitamins With Minerals]) 1 tab PO DAILY [facility] Non-Formulary Medication (Omeprazole [Omeprazole]) 20 mg PO BIDMEALS [facility] Non-Formulary Medication (Prazosin Hcl [Prazosin]) 4 mg PO BEDTIME [facility] Sodium Chloride (Saline Flush) 10 ml FLUSH ASDIRECTED PRN PRN Reason: Keep Vein Open Last Admin: 04/29/19 18:27 Dose: 10 ml Venlafaxine HCl (Effexor Xr) 150 mg PO DAILY [facility] Assessment/Plan Comment:: the etiology of intermittent neck pain is unclear. While there is still concern for acute coronary syndrome, her mother from a carotid aneurysm and as such to be prudent to rule out such an event. I will order an MRA of the head and neck repeat labs in the morning and observe overnight.
[2019-04-29] MEDS ORDERED: Aspirin 81 MG Tab.Chew PO SCH (21:00)
[2019-04-29] MEDS ORDERED: amLODIPine 5 MG Tab PO SCH (21:00)
[2019-04-29] MEDS ORDERED: Montelukast 10 MG Tab PO SCH (21:00)
[2019-04-29] MEDS ORDERED: atorvaSTATin 40 MG Tab PO SCH (21:00)
[2019-04-29] MEDS ORDERED: Baclofen 10 MG Tab PO SCH (21:00)
[2019-04-29] MEDS ORDERED: lamoTRIgine 100 MG Tab PO SCH (21:00)
[2019-04-29] MEDS ORDERED: Prazosin 1 MG Cap PO SCH (21:00)
[2019-04-29] MEDS: Metoprolol Tartrate 25 MG Tab PO SCH (21:03)
[2019-04-29] MEDS: Gabapentin 300 MG Cap PO SCH ×2 (21:17→21:21)
[2019-04-29] MEDS: Pantoprazole 40 MG Tab.CR PO SCH (21:23)
[2019-04-30 07:57] VITALS: BP 114/65; PULSE 57
[2019-04-30] MEDS: Pantoprazole 40 MG Tab.CR PO SCH (08:02)
[2019-04-30] MEDS: Metoprolol Tartrate 25 MG Tab PO SCH (08:20)
[2019-04-30] MEDS ORDERED: Multivitamins,Therapeutic Tab PO SCH (09:00)
[2019-04-30] MEDS ORDERED: Calcium Carbonate 500 MG Tablet PO SCH (09:00)
[2019-04-30] MEDS ORDERED: Lactobacillus Rhamnosus GG (Probiotic) Cap PO SCH (09:00)
[2019-04-30] MEDS ORDERED: Cholecalciferol (Vitamin D3) 25 MCG Tab PO SCH (09:00)
[2019-04-30] MEDS ORDERED: Venlafaxine 150 MG Cap.ER PO SCH (09:00)
[2019-04-30] MEDS ORDERED: lamoTRIgine 100 MG Tab PO SCH (09:00)
[2019-04-30] MEDS ORDERED: Beta-Carotene (Vitamin A) w/Vitamin C & E plus Minerals Tab PO SCH (09:00)
--- NOTE | 2019-04-30 09:01 | CT ---
INDICATION: Facial pain - left jaw pain. CT MAXILLOFACIAL SINUSES WITHOUT CONTRAST: Spiral axial imaging of the paranasal sinuses and maxillofacial area with 2.5 mm axial sections was obtained with sagittal and coronal reconstructions, 04/29/19 - no comparisons. Total exam DLP = 731.81 mGy-cm. The paranasal sinuses were well-aerated without evidence of wall thickening, air fluid levels, opacification, or bony erosion. Temporomandibular joints and facial bones appear to be intact. IMPRESSION: Normal maxillofacial CT. Report was called to Dr. Veliz at 1930 hours on 04/29/19. [facility]
--- NOTE | 2019-04-30 09:15 | PCM.PN ---
- General Info Date of Service: 04/30/19 Subjective Update: She had one episode last night,but otherwise feels good. No chest pain or SOB Functional Status: Reports: Pain Controlled - Review of Systems General: Reports: No Symptoms HEENT: Reports: No Symptoms Pulmonary: Reports: No Symptoms Cardiovascular: Reports: No Symptoms Gastrointestinal: Reports: No Symptoms - Patient Data Vitals - Most Recent: Last Vital Signs Temp 97.6 F 04/30/19 07:30 Pulse 57 L 04/30/19 08:20 Resp 20 04/30/19 07:30 BP 114/65 04/30/19 08:20 Pulse Ox 96 04/30/19 07:30 Weight - Most Recent: 89.312 kg I&O - Last 24 Hours: Intake & Output 04/29/19 04/30/19 04/30/19 22:59 06:59 14:59 Intake Total 336 Balance 336 Lab Results Last 24 Hours: Laboratory Results - last 24 hr 04/29/19 04/29/19 04/29/19 Range/Units 13:42 13:42 13:42 WBC 8.1 (4.5-12.0) X10-3/uL RBC 3.87 (3.23-5.20) x10(6)uL Hgb 12.5 (11.5-15.5) g/dL Hct 36.8 (30.0-51.3) % MCV 95.1 (80-96) fL MCH 32.3 (27.7-33.6) pg MCHC 33.9 (32.2-35.4) g/dL RDW 12.7 (11.5-15.5) % Plt Count 209 (125-369) X10(3)uL MPV 8.0 (7.4-10.4) fL Neut % (Auto) 77.2 (46-82) % Lymph % (Auto) 18.0 (13-37) % [place] % (Auto) 3.1 L (4-12) % Eos % (Auto) 1 (1.0-5.0) % Baso % (Auto) 1 (0-2) % Neut # (Auto) 6.2 (1.6-8.3) # Lymph # (Auto) 1.5 (0.6-5.0) # [place] # (Auto) 0.3 (0.0-1.3) # Eos # (Auto) 0.1 (0.0-0.8) # Baso # (Auto) 0.0 (0.0-0.2) # D-Dimer, Quantitative 0.51 (0.0-0.59) mg/LFEU Sodium 145 (135-145) mmol/L Potassium 3.8 (3.5-5.3) mmol/L Chloride 109 (100-110) mmol/L Carbon Dioxide 25 (21-32) mmol/L BUN 18 (7-18) mg/dL Creatinine 1.0 (0.55-1.02) mg/dL Est Cr Clr Drug Dosing 44.95 mL/min Estimated GFR (MDRD) 56 L (>60) BUN/Creatinine Ratio 18.0 (9-20) Glucose 162 H (80-116) mg/dL Calcium 8.6 (8.6-10.2) mg/dL Troponin I (<0.017-0.056) ng/mL 04/29/19 04/29/19 04/30/19 Range/Units 13:42 18:40 06:07 WBC 5.8 (4.5-12.0) X10-3/uL RBC 3.54 (3.23-5.20) x10(6)uL Hgb 11.5 (11.5-15.5) g/dL Hct 33.8 (30.0-51.3) % MCV 95.4 (80-96) fL MCH 32.4 (27.7-33.6) pg MCHC 33.9 (32.2-35.4) g/dL RDW 12.6 (11.5-15.5) % Plt Count 173 (125-369) X10(3)uL MPV 8.1 (7.4-10.4) fL Neut % (Auto) 57.1 (46-82) % Lymph % (Auto) 34.2 (13-37) % [place] % (Auto) 6.2 (4-12) % Eos % (Auto) 2 (1.0-5.0) % Baso % (Auto) 1 (0-2) % Neut # (Auto) 3.3 (1.6-8.3) # Lymph # (Auto) 2.0 (0.6-5.0) # [place] # (Auto) 0.4 (0.0-1.3) # Eos # (Auto) 0.1 (0.0-0.8) # Baso # (Auto) 0.0 (0.0-0.2) # D-Dimer, Quantitative (0.0-0.59) mg/LFEU Sodium (135-145) mmol/L Potassium (3.5-5.3) mmol/L Chloride (100-110) mmol/L Carbon Dioxide (21-32) mmol/L BUN (7-18) mg/dL Creatinine (0.55-1.02) mg/dL Est Cr Clr Drug Dosing mL/min Estimated GFR (MDRD) (>60) BUN/Creatinine Ratio (9-20) Glucose (80-116) mg/dL Calcium (8.6-10.2) mg/dL Troponin I < 0.017 L < 0.017 L (<0.017-0.056) ng/mL 04/30/19 04/30/19 Range/Units 06:07 06:07 WBC (4.5-12.0) X10-3/uL RBC (3.23-5.20) x10(6)uL Hgb (11.5-15.5) g/dL Hct (30.0-51.3) % MCV (80-96) fL MCH (27.7-33.6) pg MCHC (32.2-35.4) g/dL RDW (11.5-15.5) % Plt Count (125-369) X10(3)uL MPV (7.4-10.4) fL Neut % (Auto) (46-82) % Lymph % (Auto) (13-37) % [place] % (Auto) (4-12) % Eos % (Auto) (1.0-5.0) % Baso % (Auto) (0-2) % Neut # (Auto) (1.6-8.3) # Lymph # (Auto) (0.6-5.0) # [place] # (Auto) (0.0-1.3) # Eos # (Auto) (0.0-0.8) # Baso # (Auto) (0.0-0.2) # D-Dimer, Quantitative (0.0-0.59) mg/LFEU Sodium 147 H (135-145) mmol/L Potassium 3.8 (3.5-5.3) mmol/L Chloride 112 H (100-110) mmol/L Carbon Dioxide 29 (21-32) mmol/L BUN 16 (7-18) mg/dL Creatinine 0.8 (0.55-1.02) mg/dL Est Cr Clr Drug Dosing 56.19 mL/min Estimated GFR (MDRD) > 60 (>60) BUN/Creatinine Ratio 20.0 (9-20) Glucose 98 (80-116) mg/dL Calcium 8.9 (8.6-10.2) mg/dL Troponin I < 0.017 L (<0.017-0.056) ng/mL Med Orders - Current: Current Medications Albuterol (Ventolin Hfa) 0 gm INH Q4H PRN PRN Reason: Dyspnea Amlodipine Besylate (Norvasc) 5 mg PO BEDTIME [facility] Last Admin: 04/29/19 21:09 Dose: 5 mg Aspirin (Aspirin) 81 mg PO BEDTIME [facility] Last Admin: 04/29/19 20:59 Dose: 81 mg Atorvastatin Calcium (Lipitor) 40 mg PO BEDTIME [facility] Last Admin: 04/29/19 21:12 Dose: 40 mg Baclofen (Lioresal) 10 mg PO BEDTIME [facility] Last Admin: 04/29/19 21:15 Dose: 10 mg Calcium Carbonate/Glycine ([place] Calcium) 500 mg PO DAILY [facility] Last Admin: 04/30/19 08:19 Dose: 500 mg Cholecalciferol (Vitamin D3) 25 mcg PO DAILY [facility] Last Admin: 04/30/19 08:19 Dose: 25 mcg Gabapentin (Neurontin) 900 mg PO BEDTIME [facility] Last Admin: 04/29/19 21:17 Dose: 900 mg Ketorolac Tromethamine (Toradol) 15 mg IVPUSH Q6H PRN PRN Reason: Breakthrough Pain Stop: 05/04/19 20:09 Lactobacillus Rhamnosus (Culturelle) 1 cap PO DAILY [facility] Lamotrigine (Lamotrigine) 100 mg PO DAILY [facility] Last Admin: 04/30/19 08:19 Dose: 100 mg Lamotrigine (Lamotrigine) 150 mg PO BEDTIME [facility] Last Admin: 04/29/19 21:01 Dose: 150 mg Metoprolol Tartrate (Lopressor) 25 mg PO BID [facility] Last Admin: 04/30/19 08:20 Dose: 25 mg Montelukast Sodium (Singulair) 10 mg PO BEDTIME [facility] Last Admin: 04/29/19 21:13 Dose: 10 mg Multivitamins (Thera) 1 each PO DAILY [facility] Last Admin: 04/30/19 08:19 Dose: 1 each Multivitamins/Minerals (Prosight) 1 tab PO DAILY [facility] Last Admin: 04/30/19 08:19 Dose: 1 tab Nitroglycerin (Nitrostat) 0.4 mg SL Q5M PRN PRN Reason: Chest Pain Pantoprazole Sodium (Protonix) 40 mg PO BIDMEALS [facility] Last Admin: 04/30/19 08:02 Dose: 40 mg Prazosin HCl (Minpress) 4 mg PO BEDTIME [facility] Last Admin: 04/29/19 21:07 Dose: 4 mg Sodium Chloride (Saline Flush) 10 ml FLUSH ASDIRECTED PRN PRN Reason: Keep Vein Open Last Admin: 04/29/19 18:27 Dose: 10 ml Venlafaxine HCl (Effexor Xr) 150 mg PO DAILY [facility] Last Admin: 04/30/19 08:20 Dose: 150 mg Discontinued Medications Aspirin (Aspirin) 324 mg PO ONETIME ONE Stop: 04/29/19 13:26 Last Admin: 04/29/19 13:25 Dose: 324 mg Sodium Chloride (Normal Saline) 1,000 mls @ 125 mls/hr IV ASDIRECTED [facility] Last Admin: 04/29/19 18:28 Dose: 125 mls/hr Nitroglycerin (Nitro-Bid 2%) 1 gm TOP ONETIME ONE Stop: 04/29/19 18:23 Last Admin: 04/29/19 18:29 Dose: 1 gm - Exam General: Alert, Oriented HEENT: Pupils Equal Neck: Supple Lungs: Clear to Auscultation Cardiovascular: Regular Rate - Problem List & Annotations (1) Neck pain SNOMED Code(s): 97786162 Code(s): M54.2 - CERVICALGIA Status: Acute Current Visit: Yes (2) Headache SNOMED Code(s): 98535923 Code(s): R51 - HEADACHE Status: Acute Current Visit: Yes Qualifiers: Headache type: unspecified (3) HTN (hypertension) SNOMED Code(s): 07130265 Code(s): I10 - ESSENTIAL (PRIMARY) HYPERTENSION Status: Chronic Current Visit: Yes Qualifiers: Hypertension type: essential hypertension Qualified Code(s): I10 - Essential (primary) hypertension (4) CAD (coronary artery disease) SNOMED Code(s): 55072922 Code(s): I25.10 - ATHSCL HEART DISEASE OF [place] CORONARY ARTERY W/O ANG PCTRS Status: Acute Current Visit: Yes Qualifiers: Coronary Disease-Associated Artery/Lesion type: [place] artery [place] vs. transplanted heart: [place] heart Associated angina: without angina Qualified Code(s): I25.10 - Atherosclerotic heart disease of [place] coronary artery without angina pectoris (5) Obesity SNOMED Code(s): 360372450, 868983681 Code(s): E66.9 - OBESITY, UNSPECIFIED Status: Acute Current Visit: Yes Qualifiers: Obesity type: due to excess calories - Problem List Review Problem List Initiated/Reviewed/Updated: Yes - My Orders Last 24 Hours: My Active Orders 04/29/19 20:09 Ketorolac [Toradol] 15 mg IVPUSH Q6H PRN 04/29/19 20:11 Albuterol [Ventolin HFA] 0 gm INH Q4H PRN Nitroglycerin [Nitrostat] 0.4 mg SL Q5M PRN 04/29/19 21:00 Aspirin 81 mg PO BEDTIME Baclofen [Lioresal] 10 mg PO BEDTIME Gabapentin [Neurontin] 900 mg PO BEDTIME Metoprolol Tartrate [Lopressor] 25 mg PO BID Montelukast [Singulair] 10 mg PO BEDTIME Prazosin [Minpress] 4 mg PO BEDTIME amLODIPine [Norvasc] 5 mg PO BEDTIME atorvaSTATin [Lipitor] 40 mg PO BEDTIME lamoTRIgine 150 mg PO BEDTIME 04/30/19 08:00 Ang Neck w Cont [MR] Routine Pantoprazole [ProTONIX] 40 mg PO BIDMEALS 04/30/19 09:00 Beta-Carotene(A) w/C & E/Min [Prosight] 1 tab PO DAILY Calcium Carbonate [Oyster Shell Calcium] 500 mg PO DAILY Cholecalciferol (Vitamin D3) [Vitamin D3] 25 mcg PO DAILY Lactobacillus Rhamnosus GG [Culturelle] 1 cap PO DAILY Multivitamins,Therapeutic [Thera] 1 each PO DAILY Venlafaxine [Effexor XR] 150 mg PO DAILY lamoTRIgine 100 mg PO DAILY - Plan Plan:: The etiology of intermittent neck pain is unclear. She feels fine today. I will discharge her after the MRA,then see PCP on Saturday.
[2019-04-30] MEDS ORDERED: Gadoteridol 279.3 MG/ML 20 ML SDV IV ONE (09:27)
== END 2019-04-30 10:30 | disposition home or self-care (01) ==
LOC: FB.ED 12:58 → FB.MS 14:57
PROVIDERS: ADMIT Family Medicine; ATTEND Family Medicine
DX: M54.2 Cervicalgia (principal); R51 Headache; I25.10 Atherosclerotic heart disease of native coronary artery without angina pectoris; I10 Essential (primary) hypertension; I48.91 Unspecified atrial fibrillation; E78.00 Pure hypercholesterolemia, unspecified; E66.9 Obesity, unspecified; J45.909 Unspecified asthma, uncomplicated; G47.30 Sleep apnea, unspecified; M41.85 Other forms of scoliosis, thoracolumbar region; Z88.0 Allergy status to penicillin; Z98.84 Bariatric surgery status; Z95.5 Presence of coronary angioplasty implant and graft; Z79.82 Long term (current) use of aspirin; Z79.899 Other long term (current) drug therapy; Z68.36 Body mass index [BMI] 36.0-36.9, adult
CPT/HCPCS: 36415; 70486; 70548; 71046; 80048; 84484; 85025; 85379; 93005; 96360; 96361; 99284; A9270; A9579; G0378; J7030; 99217; 99218

== ENCOUNTER 2019-05-19 12:11 | Emergency (ER) | payer OTHER ==
--- NOTE | 2019-05-19 12:46 | EDM.PDOC ---
ED HPI GENERAL MEDICAL PROBLEM - General Chief Complaint: Skin Complaint Stated Complaint: RASH Time Seen by Provider: 05/19/19 12:30 - History of Present Illness INITIAL COMMENTS - FREE TEXT/NARRATIVE: Patient is a 64 yo WF who presented to the ED from the clinic because of of a rash which initially stared on the left chest and left axillary area which gradually spread to her abdomen,chest,groin and lower extremities. The rash is pruritic and respond to oral benadryl. She denies having any fever or chills or any systemic symptoms. This morning she has sore throa,denies any dyspnea. - Related Data Allergies Allergy/AdvReac Type Severity Reaction Status Date / Time Penicillins Allergy Severe Hives Verified 04/29/19 15:46 Home Meds: Home Meds Aspirin 81 mg PO BEDTIME 07/04/16 [History] Cholecalciferol (Vitamin D3) [Vitamin D3] 1,000 unit PO DAILY 07/04/16 [History] Gabapentin [Neurontin] 900 mg PO BEDTIME 07/04/16 [History] Metoprolol Tartrate 25 mg PO BID 07/04/16 [History] Prazosin HCl [Prazosin] 4 mg PO BEDTIME 07/04/16 [History] atorvaSTATin [Lipitor] 40 mg PO BEDTIME 07/04/16 [History] lamoTRIgine [Lamotrigine] 150 mg PO BEDTIME 07/04/16 [History] lamoTRIgine [Lamotrigine] 100 mg PO DAILY 07/05/16 [History] Venlafaxine [Effexor XR] 150 mg PO DAILY 07/06/16 [History] Beta-Carotene(A) W-C & E/Min [Vision Vitamins] 1 each PO DAILY 02/15/17 [History ] Montelukast Sodium 10 mg PO BEDTIME 02/15/17 [History] Multivitamin with Minerals [Multivitamins with Minerals] 1 tab PO DAILY [History] Omeprazole 20 mg PO BIDMEALS 02/15/17 [History] amLODIPine [Norvasc] 5 mg PO BEDTIME 03/20/17 [History] Nitroglycerin [Nitrostat] 0.4 mg SL Q5M PRN 07/02/17 [History] Albuterol [Proventil HFA] 2 puff INH Q4H PRN 08/07/18 [History] Baclofen 10 mg PO BEDTIME 08/07/18 [History] Calcium Carbonate [Calcium] 600 mg PO DAILY 08/07/18 [History] Bifidobacterium Infantis [Digestive Probiotic] 1 cap PO DAILY 04/29/19 [History] predniSONE 20 mg PO BID 5 Days #10 tab 05/19/19 [Rx] Past Medical History - Past Health History Medical/Surgical History: Denies Medical/Surgical History HEENT History: Reports: Impaired Vision, Macular Degeneration, Other (See Below) Other HEENT History: SURGERY FOR NASAL FX. HAS DEVIATED SEPTUM Cardiovascular History: Reports: Afib, Angina, CAD, High Cholesterol, Hypertension, Stents Respiratory History: Reports: Asthma, Sleep Apnea Gastrointestinal History: Reports: Chronic Constipation, Diverticulosis, Gastritis, GERD, GI Bleed, PUD Other Gastrointestinal History: GI BLEED 2015. EGD SHOWED ULCER. 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 LAST SEIZURE 2013 Psychiatric History: Reports: Anxiety, Depression, Panic Attack Endocrine/Metabolic History: Reports: None, Obesity/BMI 30+ Other Endocrine/Metabolic History: STATES OCCASIONALLY GET HYPOGLYCEMIC Hematologic History: Reports: Anemia, Other (See Below) Other Hematologic History: since GI bleed Immunologic History: Reports: None Oncologic (Cancer) History: Reports: None Dermatologic History: Reports: None - Infectious Disease History Infectious Disease History: Reports: Chicken Pox, Measles, Mumps - Past Surgical History Head Surgeries/Procedures: Reports: None HEENT Surgical History: Reports: Naso-Sinus Surgery, Tonsillectomy Cardiovascular Surgical History: Reports: Coronary Artery Stent Other Cardiovascular Surgeries/Procedures: STENT X1, RECCENT ANGIORAM 2017. Respiratory Surgical History: Reports: None GI Surgical History: Reports: Appendectomy, Bariatric Procedure, Cholecystectomy , Colonoscopy, EGD, Other (See Below) Other GI Surgeries/Procedures: EXPLORATORY LAPAROTOMY, LAPAROTOMY ADHESION REMOVAL. GASTRIC BIPASS STATES 2010. OPEN GALL BLADDER SURGERY. Female Surgical History: Reports: D&C, Hysterectomy, Salpingo-Oophorectomy Neurological Surgical History: Reports: None Musculoskeletal Surgical History: Reports: Arthroscopic Knee, Carpal Tunnel, Other (See Below) Other Musculoskeletal Surgeries/Procedures:: NECK SURGERY X2. DENIES HARDWARE. REMOVAL OF TAILBONE CHILD. LEFT CARPAL TUNNEL RELEASE. Back surgery 2017 STATES HAS HARDWARE IN, LOW BACK. Social & Family History - Family History Family Medical History: Noncontributory Cardiac: Reports: [place] Respiratory: Reports: Asthma GI: Reports: Celiac Disease, Hepatitis, Irritable Bowel Syndrome, Jaundice OBGYN: Reports: Fibroids Musculoskeletal: Reports: Osteoporosis Neurological: Reports: CVA Psychiatric: Reports: ADHD, Bipolar, Depression, Emotional Problems, Learning Disability, Mood Swings Oncologic: Reports: Hodgkin's Lymphoma - Caffeine Use Caffeine Use: Reports: Coffee, Soda, Tea Caffeine Use Comment: 2 cups coffee and sometimes up to 2 sodas a day ED ROS GENERAL - Review of Systems Review Of Systems: See Below Constitutional: Reports: No Symptoms HEENT: Reports: No Symptoms, Other (postnasal drainage) Cardiovascular: Reports: No Symptoms Endocrine: Reports: No Symptoms GI/Abdominal: Reports: No Symptoms : Reports: No Symptoms Musculoskeletal: Reports: No Symptoms Skin: Reports: Pruritis, Rash Neurological: Reports: No Symptoms ED EXAM, SKIN/RASH Exam: See Below Exam Limited By: No Limitations General Appearance: Alert, No Apparent Distress Eye Exam: Bilateral Eye: PERRL Ears: Normal External Exam, Normal Canal Nose: Normal Inspection, Normal Mucosa Throat/Mouth: Normal Inspection, Normal Oropharynx, Other (post nasal drainage) Head: Atraumatic Neck: Normal Inspection, Supple, Non-Tender Respiratory/Chest: No Respiratory Distress, Lungs Clear, Normal Breath Sounds, No Accessory Muscle Use Cardiovascular: Normal Peripheral Pulses, Regular Rate, Rhythm, No Edema, No Gallop, No JVD, No Murmur GI/Abdominal: Normal Bowel Sounds, Soft, Non-Tender, No Organomegaly (Female) Exam: Normal External Exam, Normal Speculum Exam, Normal Bimanual Exam Back Exam: Normal Inspection Extremities: Normal Inspection, Normal Range of Motion Skin: Warm, Dry, Other (herald patch on abdomen,usticaria looking rash all over her Lower ext and abdomen.) Departure - Departure Time of Disposition: 12:40 Disposition: Home, Self-Care 01 Clinical Impression: Pityriasis in adult, Pityriasis rosea - Discharge Information *PRESCRIPTION DRUG MONITORING PROGRAM REVIEWED*: Yes *COPY OF PRESCRIPTION DRUG MONITORING REPORT IN PATIENT TRISTAN: No Prescriptions: predniSONE 20 mg PO BID 5 Days #10 tab Referrals: Reji Valladares MD [Primary Care Provider] - Forms: ED Department Discharge Additional Instructions: please read discharge instructions on ptyriasis rosea keep your skin moist-apply lotion or baby oil prednisone 20 mg twice daily for 5 days benadryl 25 mg every 4-6 hours as needed for itching follow up if symptoms persist or worsens
[2019-05-19 15:23] VITALS: BP 148/83
== END 2019-05-19 13:14 | disposition home or self-care (01) ==
LOC: FB.ED 12:11
DX: L42 Pityriasis rosea (principal); I10 Essential (primary) hypertension; J45.909 Unspecified asthma, uncomplicated; K21.9 Gastro-esophageal reflux disease without esophagitis; F41.9 Anxiety disorder, unspecified; F32.9 Major depressive disorder, single episode, unspecified; Z88.0 Allergy status to penicillin; Z79.82 Long term (current) use of aspirin; Z79.899 Other long term (current) drug therapy
CPT/HCPCS: 99282

== ENCOUNTER 2019-10-10 10:29 | Emergency (ER) | payer OTHER ==
--- NOTE | 2019-10-10 10:43 | EDM.PDOC ---
ED HPI GENERAL MEDICAL PROBLEM - General Chief Complaint: Lower Extremity Injury/Pain Stated Complaint: RT LEG INJURY Time Seen by Provider: 10/10/19 10:39 Source of Information: Reports: Patient History Limitations: Reports: No Limitations - History of Present Illness INITIAL COMMENTS - FREE TEXT/NARRATIVE: Twisted right leg 2 days ago while standing, felt a pop, did not fall to the floor. Has been icing and elevating the leg. Swelling has improved. Pain persists. Taking Tylenol w/o much improvement. Pain is exacerbated with weight bearing, but is able to ambulate using her walker. Denies numbness, tingling or weakness. 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 Denies: NSAIDS right lower leg Pain Score (Numeric/FACES): 1 - Related Data Allergies Allergy/AdvReac Type Severity Reaction Status Date / Time Penicillins Allergy Severe Hives Verified 04/29/19 15:46 Home Meds: Home Meds Aspirin 81 mg PO BEDTIME 07/04/16 [History] Cholecalciferol (Vitamin D3) [Vitamin D3] 1,000 unit PO DAILY 07/04/16 [History] Gabapentin [Neurontin] 900 mg PO BEDTIME 07/04/16 [History] Metoprolol Tartrate 25 mg PO BID 07/04/16 [History] Prazosin HCl [Prazosin] 4 mg PO BEDTIME 07/04/16 [History] atorvaSTATin [Lipitor] 40 mg PO BEDTIME 07/04/16 [History] lamoTRIgine [Lamotrigine] 150 mg PO BEDTIME 07/04/16 [History] lamoTRIgine [Lamotrigine] 100 mg PO DAILY 07/05/16 [History] Venlafaxine [Effexor XR] 150 mg PO DAILY 07/06/16 [History] Beta-Carotene(A)-Vits C,E/Mins [Vision Vitamins] 1 each PO DAILY 02/15/17 [ History] Montelukast Sodium 10 mg PO BEDTIME 02/15/17 [History] Multivitamin with Minerals [Multivitamins with Minerals] 1 tab PO DAILY [History] Omeprazole 20 mg PO BIDMEALS 02/15/17 [History] amLODIPine [Norvasc] 5 mg PO BEDTIME 03/20/17 [History] Nitroglycerin [Nitrostat] 0.4 mg SL Q5M PRN 07/02/17 [History] Albuterol [Proventil HFA] 2 puff INH Q4H PRN 08/07/18 [History] Baclofen 10 mg PO BEDTIME 08/07/18 [History] Calcium Carbonate [Calcium] 600 mg PO DAILY 08/07/18 [History] Bifidobacterium Infantis [Digestive Probiotic] 1 cap PO DAILY 04/29/19 [History] predniSONE 20 mg PO BID 5 Days #10 tab 05/19/19 [Rx] Acetaminophen/HYDROcodone [Hays 325-5 MG] 1 - 2 tab PO Q6H PRN #20 tab [Rx] Past Medical History HEENT History: Reports: Impaired Vision, Macular Degeneration, Other (See Below) Other HEENT History: SURGERY FOR NASAL FX. HAS DEVIATED SEPTUM Cardiovascular History: Reports: Afib, Angina, CAD, High Cholesterol, Hypertension, Stents Respiratory History: Reports: Asthma, Sleep Apnea Gastrointestinal History: Reports: Chronic Constipation, Diverticulosis, Gastritis, GERD, GI Bleed, PUD Other Gastrointestinal History: GI BLEED 2015. EGD SHOWED ULCER. 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 LAST SEIZURE 2013 Psychiatric History: Reports: Anxiety, Depression, Panic Attack Endocrine/Metabolic History: Reports: None, Obesity/BMI 30+ Other Endocrine/Metabolic History: STATES OCCASIONALLY GET HYPOGLYCEMIC Hematologic History: Reports: Anemia, Other (See Below) Other Hematologic History: since GI bleed Immunologic History: Reports: None Oncologic (Cancer) History: Reports: None Dermatologic History: Reports: None - Infectious Disease History Infectious Disease History: Reports: Chicken Pox, Measles, Mumps - Past Surgical History Head Surgeries/Procedures: Reports: None HEENT Surgical History: Reports: Naso-Sinus Surgery, Tonsillectomy Cardiovascular Surgical History: Reports: Coronary Artery Stent Other Cardiovascular Surgeries/Procedures: STENT X1, RECCENT ANGIORAM 2017. Respiratory Surgical History: Reports: None GI Surgical History: Reports: Appendectomy, Bariatric Procedure, Cholecystectomy , Colonoscopy, EGD, Other (See Below) Other GI Surgeries/Procedures: EXPLORATORY LAPAROTOMY, LAPAROTOMY ADHESION REMOVAL. GASTRIC BIPASS STATES 2010. OPEN GALL BLADDER SURGERY. Female Surgical History: Reports: D&C, Hysterectomy, Salpingo-Oophorectomy Neurological Surgical History: Reports: None Musculoskeletal Surgical History: Reports: Arthroscopic Knee, Carpal Tunnel, Other (See Below) Other Musculoskeletal Surgeries/Procedures:: NECK SURGERY X2. DENIES HARDWARE. REMOVAL OF TAILBONE CHILD. LEFT CARPAL TUNNEL RELEASE. Back surgery 2017 STATES HAS HARDWARE IN, LOW BACK. Social & Family History - Family History Family Medical History: Noncontributory Cardiac: Reports: [place] Respiratory: Reports: Asthma GI: Reports: Celiac Disease, Hepatitis, Irritable Bowel Syndrome, Jaundice OBGYN: Reports: Fibroids Musculoskeletal: Reports: Osteoporosis Neurological: Reports: CVA Psychiatric: Reports: ADHD, Bipolar, Depression, Emotional Problems, Learning Disability, Mood Swings Oncologic: Reports: Hodgkin's Lymphoma - Tobacco Use Tobacco Use Within Last Twelve Months: No - Caffeine Use Caffeine Use: Reports: Coffee, Soda, Tea Caffeine Use Comment: 2 cups coffee and sometimes up to 2 sodas a day - Alcohol Use Alcohol Use History: No Review of Systems - Review of Systems Review Of Systems: Comprehensive ROS is negative, except as noted in HPI. ED EXAM, GENERAL - Physical Exam Exam: See Below Exam Limited By: No Limitations General Appearance: Alert, WD/WN, No Apparent Distress Head: Atraumatic, Normocephalic Neck: Full Range of Motion Respiratory/Chest: No Respiratory Distress Peripheral Pulses: 2+: Dorsalis Pedis (R) Extremities: No Pedal Edema, Other (tenderness to proximal calf, no swelling, no deformity) Neurological: Alert, Normal Cognition, No Motor/Sensory Deficits Psychiatric: Normal Affect, Normal Mood Skin Exam: Warm, Dry, Intact Course - Vital Signs Last Recorded V/S: Last Vital Signs Temp 36.7 C 10/10/19 10:29 Pulse 72 10/10/19 10:29 Resp 17 10/10/19 10:29 BP 132/72 10/10/19 10:29 Pulse Ox 99 10/10/19 10:29 - Orders/Labs/Meds Orders: Active Orders 24 hr Category Date Time Status Tibia Fibula Rt [CR] Stat Exams 10/10/19 10:38 Ordered - Radiology Interpretation Free Text/Narrative:: Right Tib Fib XR: No acute osseous abnormalities. (ED provider interpretation) Departure - Departure Time of Disposition: 10:54 Disposition: Home, Self-Care 01 Condition: Good Clinical Impression: Gastrocnemius muscle strain Qualifiers: Encounter type: initial encounter Laterality: right Qualified Code(s): S86.111A - Strain of other muscle(s) and tendon(s) of posterior muscle group at lower leg level, right leg, initial encounter - Discharge Information *PRESCRIPTION DRUG MONITORING PROGRAM REVIEWED*: Yes *COPY OF PRESCRIPTION DRUG MONITORING REPORT IN PATIENT TRISTAN: No Prescriptions: Acetaminophen/HYDROcodone [Hays 325-5 MG] 1 - 2 tab PO Q6H PRN #20 tab PRN Reason: Pain Instructions: Muscle Strain, [id number] Referrals: Reji Valladares MD [Physician] - Forms: ED Department Discharge Additional Instructions: Fill the Hays prescription and take as directed. Do not take other Acetaminophen containing medications while taking Hays. Rest, elevate. Weight bear as tolerated. Follow up with your primary physician in 3-4 days if symptoms haven't improved. Sepsis Event Note - Focused Exam Vital Signs: Vital Signs Temp Pulse Resp BP Pulse Ox 10/10/19 10:29 36.7 C 72 17 132/72 99 Date Exam was Performed: 10/10/19 Time Exam was Performed: 10:51 - My Orders Last 24 Hours: My Active Orders 10/10/19 10:38 Tibia Fibula Rt [CR] Stat - Assessment/Plan Last 24 Hours: My Active Orders 10/10/19 10:38 Tibia Fibula Rt [CR] Stat
[2019-10-10 10:46] VITALS: BP 132/72; PULSE 72
--- NOTE | 2019-10-12 12:41 | CR ---
INDICATION: Injury, pain below knee. RIGHT TIB/FIB: Four images of the right tibia and fibula were obtained - no comparisons. Degenerative changes with hypertrophic lipping are noted at the intercondylar notch and spines at the knee joint. Moderate size posterior calcaneal spur is noted with a small planar calcaneal spur. The ankle mortise appeared to be intact. Bone density appeared to be normal. A definite fracture or dislocation is not seen. IMPRESSION: 1. No acute fracture or dislocation. 2. Osteoarthritis. 3. Heel spurs. MTDD
== END 2019-10-10 11:05 | disposition home or self-care (01) ==
LOC: FB.ED 10:29
DX: S86.111A Strain of other muscle(s) and tendon(s) of posterior muscle group at lower leg level, right leg, initial encounter (principal); I48.91 Unspecified atrial fibrillation; E78.00 Pure hypercholesterolemia, unspecified; I10 Essential (primary) hypertension; I25.10 Atherosclerotic heart disease of native coronary artery without angina pectoris; J45.909 Unspecified asthma, uncomplicated; K21.9 Gastro-esophageal reflux disease without esophagitis; F41.9 Anxiety disorder, unspecified; F32.9 Major depressive disorder, single episode, unspecified; E66.9 Obesity, unspecified; Z88.0 Allergy status to penicillin; Z79.82 Long term (current) use of aspirin; Z79.52 Long term (current) use of systemic steroids; Z79.899 Other long term (current) drug therapy; X50.1XXA Overexertion from prolonged static or awkward postures, initial encounter; Y93.89 Activity, other specified
CPT/HCPCS: 73590-RT; 99283; 99283-25

== ENCOUNTER 2020-02-05 05:14 | Emergency (ER) | payer MEDICARE, OTHER ==
--- NOTE | 2020-02-05 06:58 | EDM.PDOC ---
ED HPI GENERAL MEDICAL PROBLEM - General Chief Complaint: Lower Extremity Injury/Pain Stated Complaint: FALL; ANKLE INJURY Time Seen by Provider: 02/05/20 06:20 Source of Information: Reports: Patient History Limitations: Reports: No Limitations - History of Present Illness INITIAL COMMENTS - FREE TEXT/NARRATIVE: Patient presented to the ED because of left ankle and left knee pain. The pain is sharp,7/10, and worse with ambulation. left ankle and left lower leg Pain Score (Numeric/FACES): 10 - Related Data Allergies Allergy/AdvReac Type Severity Reaction Status Date / Time Penicillins Allergy Severe Hives Verified 04/29/19 15:46 Home Meds: Home Meds Aspirin 81 mg PO BEDTIME 07/04/16 [History] Cholecalciferol (Vitamin D3) [Vitamin D3] 1,000 unit PO DAILY 07/04/16 [History] Gabapentin [Neurontin] 900 mg PO BEDTIME 07/04/16 [History] Metoprolol Tartrate 25 mg PO BID 07/04/16 [History] Prazosin HCl [Prazosin] 8 mg PO BEDTIME 07/04/16 [History] atorvaSTATin [Lipitor] 40 mg PO BEDTIME 07/04/16 [History] lamoTRIgine [Lamotrigine] 150 mg PO BEDTIME 07/04/16 [History] lamoTRIgine [Lamotrigine] 100 mg PO DAILY 07/05/16 [History] Venlafaxine [Effexor XR] 325 mg PO DAILY 07/06/16 [History] Beta-Carotene(A)-Vits C,E/Mins [Vision Vitamins] 1 each PO DAILY 02/15/17 [ History] Montelukast Sodium 10 mg PO BEDTIME 02/15/17 [History] Multivitamin with Minerals [Multivitamins with Minerals] 1 tab PO DAILY [History] Omeprazole 20 mg PO BIDMEALS 02/15/17 [History] amLODIPine [Norvasc] 5 mg PO BEDTIME 03/20/17 [History] Nitroglycerin [Nitrostat] 0.4 mg SL Q5M PRN 07/02/17 [History] Albuterol [Proventil HFA] 2 puff INH Q4H PRN 08/07/18 [History] Baclofen 10 mg PO BEDTIME 08/07/18 [History] Calcium Carbonate [Calcium] 600 mg PO DAILY 08/07/18 [History] Bifidobacterium Infantis [Digestive Probiotic] 1 cap PO DAILY 04/29/19 [History] Clopidogrel Bisulfate [Clopidogrel] 75 mg PO DAILY 02/05/20 [History] Dicyclomine [Bentyl] 20 mg PO BID 02/05/20 [History] Isosorbide Dinitrate 10 mg PO BID 02/05/20 [History] traMADol [Ultram] 100 mg PO Q8H PRN #30 tab 02/05/20 [Rx] Past Medical History HEENT History: Reports: Impaired Vision, Macular Degeneration, Other (See Below) Other HEENT History: SURGERY FOR NASAL FX. HAS DEVIATED SEPTUM Cardiovascular History: Reports: Afib, Angina, CAD, High Cholesterol, Hypertension, Stents Respiratory History: Reports: Asthma, Sleep Apnea Gastrointestinal History: Reports: Chronic Constipation, Diverticulosis, Gastritis, GERD, GI Bleed, PUD Other Gastrointestinal History: GI BLEED 2015. EGD SHOWED ULCER. 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 LAST SEIZURE 2013 Psychiatric History: Reports: Anxiety, Depression, Panic Attack Endocrine/Metabolic History: Reports: None, Obesity/BMI 30+ Other Endocrine/Metabolic History: STATES OCCASIONALLY GET HYPOGLYCEMIC Hematologic History: Reports: Anemia, Other (See Below) Other Hematologic History: since GI bleed Immunologic History: Reports: None Oncologic (Cancer) History: Reports: None Dermatologic History: Reports: None - Infectious Disease History Infectious Disease History: Reports: Chicken Pox, Measles, Mumps - Past Surgical History Head Surgeries/Procedures: Reports: None HEENT Surgical History: Reports: Naso-Sinus Surgery, Tonsillectomy Cardiovascular Surgical History: Reports: Coronary Artery Stent Other Cardiovascular Surgeries/Procedures: STENT X1, RECCENT ANGIORAM 2017. Respiratory Surgical History: Reports: None GI Surgical History: Reports: Appendectomy, Bariatric Procedure, Cholecystectomy , Colonoscopy, EGD, Other (See Below) Other GI Surgeries/Procedures: EXPLORATORY LAPAROTOMY, LAPAROTOMY ADHESION REMOVAL. GASTRIC BIPASS STATES 2010. OPEN GALL BLADDER SURGERY. Female Surgical History: Reports: D&C, Hysterectomy, Salpingo-Oophorectomy Neurological Surgical History: Reports: None Musculoskeletal Surgical History: Reports: Arthroscopic Knee, Carpal Tunnel, Other (See Below) Other Musculoskeletal Surgeries/Procedures:: NECK SURGERY X2. DENIES HARDWARE. REMOVAL OF TAILBONE CHILD. LEFT CARPAL TUNNEL RELEASE. Back surgery 2017 STATES HAS HARDWARE IN, LOW BACK. Social & Family History - Family History Family Medical History: Noncontributory Cardiac: Reports: [place] Respiratory: Reports: Asthma GI: Reports: Celiac Disease, Hepatitis, Irritable Bowel Syndrome, Jaundice OBGYN: Reports: Fibroids Musculoskeletal: Reports: Osteoporosis Neurological: Reports: CVA Psychiatric: Reports: ADHD, Bipolar, Depression, Emotional Problems, Learning Disability, Mood Swings Oncologic: Reports: Hodgkin's Lymphoma - Tobacco Use Smoking Status *Q: Never Smoker - Caffeine Use Caffeine Use: Reports: Coffee, Soda, Tea Caffeine Use Comment: 2 cups coffee and sometimes up to 2 sodas a day Review of Systems - Review of Systems Review Of Systems: See Below Constitutional: Reports: No Symptoms Ears: Reports: No Symptoms Nose: Reports: No Symptoms Mouth/Throat: Reports: No Symptoms Respiratory: Reports: No Symptoms Cardiovascular: Reports: No Symptoms Genitourinary: Reports: No Symptoms Musculoskeletal: Reports: Joint Pain Skin: Reports: No Symptoms ED EXAM, GENERAL - Physical Exam Exam: See Below Exam Limited By: No Limitations General Appearance: Alert, No Apparent Distress Ears: Normal External Exam Nose: Normal Inspection Throat/Mouth: Normal Inspection, Normal Lips, Normal Teeth Head: Atraumatic, Normocephalic Neck: Normal Inspection, Supple, Non-Tender, Full Range of Motion Cardiovascular: Normal Peripheral Pulses, Regular Rate, Rhythm, No Edema, No Gallop, No JVD GI/Abdominal: Normal Bowel Sounds, Soft, Non-Tender, No Organomegaly Back Exam: Normal Inspection, Full Range of Motion Extremities: Normal Inspection, Joint Swelling, Other (tendernesss lat and medial aspect of left ankle) Course - Vital Signs Text/Narrative:: xray left knee-neg xray left ankle-questionable hairline fracture per radiology. repeat xray in 10 days Last Recorded V/S: Last Vital Signs Temp 36.0 C L 02/05/20 05:14 Pulse 74 02/05/20 05:14 Resp 17 02/05/20 05:14 BP 135/108 H 02/05/20 05:14 Pulse Ox 99 02/05/20 05:14 - Orders/Labs/Meds Orders: Active Orders 24 hr Category Date Time Status Tibia Fibula Lt [CR] Stat Exams 02/05/20 06:07 Taken Departure - Departure Time of Disposition: 06:30 Disposition: Home, Self-Care 01 Condition: Good Clinical Impression: Ankle sprain - Discharge Information Prescriptions: traMADol [Ultram] 100 mg PO Q8H PRN #30 tab PRN Reason: Pain Instructions: Ankle Sprain, [id number] Referrals: Reji Valladares MD [Primary Care Provider] - Forms: ED Department Discharge Additional Instructions: Please read discharge instructions on sprain Apply ice Elevate Take tramadol 100 mg with tylenol 1000 mg every 8 hours as needed for pain Follow up in 20 days for a repeat xray Sepsis Event Note - Evaluation Sepsis Screening Result: No Definite Risk - Focused Exam Vital Signs: Vital Signs Temp Pulse Resp BP Pulse Ox 02/05/20 05:14 36.0 C L 74 17 135/108 H 99 Date Exam was Performed: 02/05/20 Time Exam was Performed: 07:06 - My Orders Last 24 Hours: My Active Orders 02/05/20 06:07 Tibia Fibula Lt [CR] Stat - Assessment/Plan Last 24 Hours: My Active Orders 02/05/20 06:07 Tibia Fibula Lt [CR] Stat
[2020-02-05 07:24] VITALS: BP 117/54; PULSE 67
== END 2020-02-05 07:07 | disposition home or self-care (01) ==
LOC: FB.ED 05:14
DX: S93.402A Sprain of unspecified ligament of left ankle, initial encounter (principal); I48.91 Unspecified atrial fibrillation; I25.10 Atherosclerotic heart disease of native coronary artery without angina pectoris; E78.00 Pure hypercholesterolemia, unspecified; I10 Essential (primary) hypertension; J45.909 Unspecified asthma, uncomplicated; K21.9 Gastro-esophageal reflux disease without esophagitis; F41.9 Anxiety disorder, unspecified; F32.9 Major depressive disorder, single episode, unspecified; E66.9 Obesity, unspecified; Z68.35 Body mass index [BMI] 35.0-35.9, adult; Z88.0 Allergy status to penicillin; Z79.82 Long term (current) use of aspirin; Z79.899 Other long term (current) drug therapy; Z79.02 Long term (current) use of antithrombotics/antiplatelets; Z95.5 Presence of coronary angioplasty implant and graft
CPT/HCPCS: 73590-LT; 99283

== ENCOUNTER 2020-09-08 19:13 | Emergency (ER) | payer MEDICARE ==
[2020-09-08] MEDS ORDERED: Acetaminophen/oxyCODONE 325-5 MG Tab PO ONE (19:14)
[2020-09-08] MEDS ORDERED: Sodium Chloride 0.9% 10 ML Syringe FLUSH PRN (20:22)
[2020-09-08] MEDS: Morphine 2 MG/ML SYRINGE IVPUSH ONE (20:33)
--- NOTE | 2020-09-08 21:21 | EDM.PDOC ---
ED HPI GENERAL MEDICAL PROBLEM - General Chief Complaint: Head Injury Stated Complaint: HEAD INJURY Time Seen by Provider: 09/08/20 19:50 Source of Information: Reports: Patient History Limitations: Reports: No Limitations - History of Present Illness INITIAL COMMENTS - FREE TEXT/NARRATIVE: Patient presented to the ED because of left eye injury. She went to the bar, got drunk, slipped and fell face down on the ice. She had a left orbital hematoma and c/o headache. Denies any neck pain or any other injuries. She is on plavix due to CAD. Head Pain Score (Numeric/FACES): 10 - Related Data Allergies Allergy/AdvReac Type Severity Reaction Status Date / Time Penicillins Allergy Severe Hives Verified 04/29/19 15:46 Home Meds: Home Meds Aspirin 81 mg PO BEDTIME 07/04/16 [History] Cholecalciferol (Vitamin D3) [Vitamin D3] 1,000 unit PO DAILY 07/04/16 [History] Gabapentin [Neurontin] 900 mg PO BEDTIME 07/04/16 [History] Metoprolol Tartrate 25 mg PO BID 07/04/16 [History] Prazosin HCl [Prazosin] 8 mg PO BEDTIME 07/04/16 [History] atorvaSTATin [Lipitor] 40 mg PO BEDTIME 07/04/16 [History] lamoTRIgine [Lamotrigine] 150 mg PO BEDTIME 07/04/16 [History] lamoTRIgine [Lamotrigine] 100 mg PO DAILY 07/05/16 [History] Venlafaxine [Effexor XR] 325 mg PO DAILY 07/06/16 [History] Beta-Carotene(A)-Vits C,E/Mins [Vision Vitamins] 1 each PO DAILY 02/15/17 [History] Montelukast Sodium 10 mg PO BEDTIME 02/15/17 [History] Multivitamin with Minerals [Multivitamins with Minerals] 1 tab PO DAILY 02/15/17 [History] Omeprazole 20 mg PO BIDMEALS 02/15/17 [History] amLODIPine [Norvasc] 5 mg PO BEDTIME 03/20/17 [History] Nitroglycerin [Nitrostat] 0.4 mg SL Q5M PRN 07/02/17 [History] Albuterol [Proventil HFA] 2 puff INH Q4H PRN 08/07/18 [History] Baclofen 10 mg PO BEDTIME 08/07/18 [History] Calcium Carbonate [Calcium] 600 mg PO DAILY 08/07/18 [History] Bifidobacterium Infantis [Digestive Probiotic] 1 cap PO DAILY 04/29/19 [History] Clopidogrel Bisulfate [Clopidogrel] 75 mg PO DAILY 02/05/20 [History] Dicyclomine [Bentyl] 20 mg PO BID 02/05/20 [History] Isosorbide Dinitrate 10 mg PO BID 02/05/20 [History] traMADol [Ultram] 100 mg PO Q8H PRN #30 tab 02/05/20 [Rx] Acetaminophen/oxyCODONE [Percocet 325-5 MG] 2 each PO Q4H #15 tab 09/08/20 [Rx] Past Medical History HEENT History: Reports: Impaired Vision, Macular Degeneration, Other (See Below) Other HEENT History: SURGERY FOR NASAL FX. HAS DEVIATED SEPTUM Cardiovascular History: Reports: Afib, Angina, CAD, High Cholesterol, Hypertension, Stents Respiratory History: Reports: Asthma, Sleep Apnea Gastrointestinal History: Reports: Chronic Constipation, Diverticulosis, Gastritis, GERD, GI Bleed, PUD Other Gastrointestinal History: GI BLEED 2015. EGD SHOWED ULCER. Genitourinary History: Reports: Pyelonephritis SURGERY NURSE History: Reports: Other SURGERY NURSE History: II PARA II Musculoskeletal History: Reports: Arthritis, Back Pain, Chronic, RA Neurological History: Reports: Concussion, Seizure Other Neuro History: "a couple mini-seizures". LAST SEIZURE 2013 Psychiatric History: Reports: Anxiety, Depression, Panic Attack Endocrine/Metabolic History: Reports: None, Obesity/BMI 30+ Other Endocrine/Metabolic History: STATES OCCASIONALLY GET HYPOGLYCEMIC Hematologic History: Reports: Anemia, Other (See Below) Other Hematologic History: since GI bleed Immunologic History: Reports: None Oncologic (Cancer) History: Reports: None Dermatologic History: Reports: None - Infectious Disease History Infectious Disease History: Reports: Chicken Pox, Measles, Mumps - Past Surgical History Head Surgeries/Procedures: Reports: None HEENT Surgical History: Reports: Naso-Sinus Surgery, Tonsillectomy Cardiovascular Surgical History: Reports: Coronary Artery Stent Other Cardiovascular Surgeries/Procedures: STENT X1, RECCENT ANGIORAM 2017. Respiratory Surgical History: Reports: None GI Surgical History: Reports: Appendectomy, Bariatric Procedure, Cholecystectomy, Colonoscopy, EGD, Other (See Below) Other GI Surgeries/Procedures: EXPLORATORY LAPAROTOMY, LAPAROTOMY ADHESION REMOVAL. GASTRIC BIPASS STATES 2010. OPEN GALL BLADDER SURGERY. Female Surgical History: Reports: D&C, Hysterectomy, Salpingo-Oophorectomy Neurological Surgical History: Reports: None Musculoskeletal Surgical History: Reports: Arthroscopic Knee, Carpal Tunnel, Other (See Below) Other Musculoskeletal Surgeries/Procedures:: NECK SURGERY X2. DENIES HARDWARE. REMOVAL OF TAILBONE CHILD. LEFT CARPAL TUNNEL RELEASE. Back surgery 03/12/2018 STATES HAS HARDWARE IN, LOW BACK. Social & Family History - Family History Family Medical History: No Pertinent Family History Cardiac: Reports: [place] Respiratory: Reports: Asthma GI: Reports: Celiac Disease, Hepatitis, Irritable Bowel Syndrome, Jaundice OBGYN: Reports: Fibroids Musculoskeletal: Reports: Osteoporosis Neurological: Reports: CVA Psychiatric: Reports: ADHD, Bipolar, Depression, Emotional Problems, Learning Disability, Mood Swings Oncologic: Reports: Hodgkin's Lymphoma - Caffeine Use Caffeine Use: Reports: Coffee, Soda, Tea Caffeine Use Comment: 2 cups coffee and sometimes up to 2 sodas a day ED ROS GENERAL - Review of Systems Review Of Systems: See Below Constitutional: Reports: No Symptoms HEENT: Reports: Eye Pain Respiratory: Reports: No Symptoms Cardiovascular: Reports: No Symptoms Endocrine: Reports: No Symptoms GI/Abdominal: Reports: No Symptoms : Reports: No Symptoms Musculoskeletal: Reports: No Symptoms Skin: Reports: No Symptoms Neurological: Reports: No Symptoms Psychiatric: Reports: No Symptoms Hematologic/Lymphatic: Reports: No Symptoms ED EXAM, HEAD INJURY - Physical Exam Exam: See Below Exam Limited By: No Limitations General Appearance: Alert, No Apparent Distress Head: Atraumatic, Normocephalic, Other (left orbital hematoma, laceration left upper eyelid) Eyes: Bilateral Eye: PERRL Ears: Normal External Exam Nose: Normal Inspection Throat/Mouth: Normal Inspection Neck: Non-Tender Respiratory: No Respiratory Distress, Lungs Clear, Normal Breath Sounds Cardiovascular: Normal Peripheral Pulses, Regular Rate, Rhythm, No Edema GI/Abdominal Exam: Normal Bowel Sounds, Soft, Non-Tender, No Organomegaly Back Exam: Normal Inspection Extremities: Normal Inspection 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 He recommended for patient to follow up with him after corin year and to just the pain symptomatically and follow up with well logger or multi township assessor in 1-2 days Last Recorded V/S: Last Vital Signs Temp 36.4 C 09/08/20 19:47 Pulse 88 09/08/20 22:01 Resp 18 09/08/20 22:01 BP 145/88 H 09/08/20 22:01 Pulse Ox 99 09/08/20 22:01 - Orders/Labs/Meds Orders: Active Orders 24 hr Category Date Time Status Head wo Cont [CT] Stat Exams 09/08/20 19:31 Taken Max Facial Sinus wo Cont [CT] Stat Exams 09/08/20 19:32 Taken Saline Lock Insert [OM.PC] Routine Oth 09/08/20 20:22 Ordered Labs: Laboratory Tests 09/08/20 09/08/20 09/08/20 Range/Units 20:30 20:30 20:30 WBC 6.3 (3.0-10.3) x10-3/uL RBC 4.33 (3.60-5.20) x10(6)uL Hgb 13.1 (11.4-15.5) g/dL Hct 40.0 (34.2-48.2) % MCV 92.3 (76.7-100.5) fL MCH 30.2 (23.9-33.9) pg MCHC 32.7 (31.9-34.8) g/dL RDW 12.7 (12.3-16.5) % Plt Count 233 (151-488) x10(3)uL MPV 7.3 (7.1-12.4) fL Neut % (Auto) 66.9 (30.8-76.2) % Lymph % (Auto) 24.9 (18.4-52.1) % Lamar % (Auto) 5.2 (4.4-15.7) % Eos % (Auto) 2.0 (0.6-8.1) % Baso % (Auto) 1.0 (0.2-1.5) % Neut # (Auto) 4.2 (1.5-6.3) x10-3/uL Lymph # (Auto) 1.6 (1.0-4.4) x10-3/uL Lamar # (Auto) 0.3 (0.3-1.0) x10-3/uL Eos # (Auto) 0.1 (0.0-0.8) x10-3/uL Baso # (Auto) 0.1 (0.0-0.1) x10-3/uL PT 9.9 (9.0-11.1) sec INR 0.91 L (1.00-1.24) APTT 23.5 L (24.4-33.2) SECONDS Sodium 132 L D (135-145) mmol/L Potassium 3.8 (3.5-5.3) mmol/L Chloride 94 L D (100-110) mmol/L Carbon Dioxide 26 (21-32) mmol/L BUN 10 (7-18) mg/dL Creatinine 0.7 (0.55-1.02) mg/dL Est Cr Clr Drug Dosing TNP Estimated GFR (MDRD) > 60 (>60) BUN/Creatinine Ratio 14.3 (9-20) Glucose 111 (80-116) mg/dL Calcium 8.6 (8.6-10.2) mg/dL Total Bilirubin 0.4 (0.1-1.3) mg/dL AST 23 (5-25) IU/L ALT 36 (12-36) U/L Alkaline Phosphatase 190 H (56-112) IU/L Total Protein 7.1 (6.0-8.0) g/dL Albumin 3.7 (3.2-4.6) g/dL Globulin 3.4 g/dL Albumin/Globulin Ratio 1.1 Ethyl Alcohol (<0.03) % 12/17/20 Range/Units 20:30 WBC (3.0-10.3) x10-3/uL RBC (3.60-5.20) x10(6)uL Hgb (11.4-15.5) g/dL Hct (34.2-48.2) % MCV (76.7-100.5) fL MCH (23.9-33.9) pg MCHC (31.9-34.8) g/dL RDW (12.3-16.5) % Plt Count (151-488) x10(3)uL MPV (7.1-12.4) fL Neut % (Auto) (30.8-76.2) % Lymph % (Auto) (18.4-52.1) % Lamar % (Auto) (4.4-15.7) % Eos % (Auto) (0.6-8.1) % Baso % (Auto) (0.2-1.5) % Neut # (Auto) (1.5-6.3) x10-3/uL Lymph # (Auto) (1.0-4.4) x10-3/uL Lamar # (Auto) (0.3-1.0) x10-3/uL Eos # (Auto) (0.0-0.8) x10-3/uL Baso # (Auto) (0.0-0.1) x10-3/uL PT (9.0-11.1) sec INR (1.00-1.24) APTT (24.4-33.2) SECONDS Sodium (135-145) mmol/L Potassium (3.5-5.3) mmol/L Chloride (100-110) mmol/L Carbon Dioxide (21-32) mmol/L BUN (7-18) mg/dL Creatinine (0.55-1.02) mg/dL Est Cr Clr Drug Dosing Estimated GFR (MDRD) (>60) BUN/Creatinine Ratio (9-20) Glucose (80-116) mg/dL Calcium (8.6-10.2) mg/dL Total Bilirubin (0.1-1.3) mg/dL AST (5-25) IU/L ALT (12-36) U/L Alkaline Phosphatase (56-112) IU/L Total Protein (6.0-8.0) g/dL Albumin (3.2-4.6) g/dL Globulin g/dL Albumin/Globulin Ratio Ethyl Alcohol 0.25 H* (<0.03) % Meds: Medications Discontinued Medications Generic Name Dose Route Start Last Admin Trade Name Samantha PRN Reason Stop Dose Admin Morphine Sulfate 2 mg 09/08/20 20:22 09/08/20 20:33 Morphine IVPUSH 09/08/20 20:23 2 mg ONETIME ONE Administration Sodium Chloride 10 ml 09/08/20 20:22 Saline Flush FLUSH ASDIRECTED PRN Keep Vein Open Departure - Departure Time of Disposition: 21:30 Disposition: Home, Self-Care 01 Condition: Good Clinical Impression: Orbital fracture, Alcohol intoxication, Laceration - Discharge Information Prescriptions: Acetaminophen/oxyCODONE [Percocet 325-5 MG] 2 each PO Q4H #15 tab Referrals: Reji Valladares MD [Primary Care Provider] - Forms: ED Department Discharge Additional Instructions: Please read discharge instructions on orbital fracture Follow up with the well logger in 1-2 days at [facility] Take percpcet 1-2 tablets every 4-6 hours as needed for pain Apply ice pack to your left eye 3 times daily Follow up with Dr Blake(ENT/Trauma Surgeon)n after new year. Call [phone] to schedule an appointment Sepsis Event Note (ED) - Evaluation Sepsis Screening Result: No Definite Risk - My Orders Last 24 Hours: My Active Orders 09/08/20 19:31 Head wo Cont [CT] Stat 09/08/20 19:32 Max Facial Sinus wo Cont [CT] Stat 09/08/20 20:22 Saline Lock Insert [OM.PC] Routine - Assessment/Plan Last 24 Hours: My Active Orders 09/08/20 19:31 Head wo Cont [CT] Stat 09/08/20 19:32 Max Facial Sinus wo Cont [CT] Stat 09/08/20 20:22 Saline Lock Insert [OM.PC] Routine
[2020-09-08 22:01] VITALS: BP 145/88; PULSE 88
== END 2020-09-08 22:26 | disposition home or self-care (01) ==
LOC: FB.ED 19:13
DX: S02.32XA Fracture of orbital floor, left side, initial encounter for closed fracture (principal); S01.112A Laceration without foreign body of left eyelid and periocular area, initial encounter; F10.129 Alcohol abuse with intoxication, unspecified; I48.91 Unspecified atrial fibrillation; I25.10 Atherosclerotic heart disease of native coronary artery without angina pectoris; E78.00 Pure hypercholesterolemia, unspecified; I10 Essential (primary) hypertension; J45.909 Unspecified asthma, uncomplicated; K21.9 Gastro-esophageal reflux disease without esophagitis; M06.9 Rheumatoid arthritis, unspecified; F41.9 Anxiety disorder, unspecified; F32.9 Major depressive disorder, single episode, unspecified; E66.9 Obesity, unspecified; R56.9 Unspecified convulsions; Z88.0 Allergy status to penicillin; Z79.82 Long term (current) use of aspirin; Z79.899 Other long term (current) drug therapy; Z95.5 Presence of coronary angioplasty implant and graft; Z79.02 Long term (current) use of antithrombotics/antiplatelets; Y90.8 Blood alcohol level of 240 mg/100 ml or more; W00.0XXA Fall on same level due to ice and snow, initial encounter
CPT/HCPCS: 12011; 36415; 70450; 70486; 80053; 80307; 85025; 85610; 85730; 96374; 99284; J2270; A9270-GY

== ENCOUNTER 2021-05-29 14:09 | Emergency (ER) | payer MEDICARE, OTHER ==
--- NOTE | 2021-05-29 14:45 | EDM.PDOC ---
ED HPI GENERAL MEDICAL PROBLEM - General Stated Complaint: SHARP PAIN LEFT SIDE OF HEAD Time Seen by Provider: 05/29/21 14:42 Source of Information: Reports: Patient - History of Present Illness INITIAL COMMENTS - FREE TEXT/NARRATIVE: 66-year-old lady came to the emergency department for evaluation of acute onset of left-sided headache type pain. She states that the pain is just posterior to the methodist area of her head, sharp, severe at times, stabbing, and lasts only several seconds at a time. The symptoms started last night for the very first time and have occurred occasionally and now more frequently. She is not taking anything specifically to try to alleviate the symptoms. - Related Data Allergies Allergy/AdvReac Type Severity Reaction Status Date / Time Penicillins Allergy Severe Hives Verified 05/29/21 16:13 Home Meds: Home Meds Aspirin 81 mg PO BID 07/04/16 [History] Cholecalciferol (Vitamin D3) [Vitamin D3] 1,000 unit PO DAILY 07/04/16 [History] Gabapentin [Neurontin] 600 mg PO BEDTIME 07/04/16 [History] Metoprolol Tartrate 25 mg PO BID 07/04/16 [History] Prazosin HCl [Prazosin] 8 mg PO BEDTIME 07/04/16 [History] atorvaSTATin [Lipitor] 40 mg PO BEDTIME 07/04/16 [History] lamoTRIgine [Lamotrigine] 150 mg PO BEDTIME 07/04/16 [History] lamoTRIgine [Lamotrigine] 100 mg PO DAILY 07/05/16 [History] Beta-Carotene(A)-Vits C,E/Mins [Vision Vitamins] 1 each PO DAILY 02/15/17 [History] Montelukast Sodium 10 mg PO BEDTIME 02/15/17 [History] Multivitamin with Minerals [Multivitamins with Minerals] 1 tab PO DAILY 02/15/17 [History] Omeprazole 20 mg PO BIDMEALS 02/15/17 [History] amLODIPine [Norvasc] 10 mg PO BEDTIME 03/20/17 [History] Nitroglycerin [Nitrostat] 0.4 mg SL Q5M PRN 07/02/17 [History] Albuterol [Proventil HFA] 2 puff INH Q4H PRN 08/07/18 [History] Calcium Carbonate [Calcium] 600 mg PO DAILY 08/07/18 [History] Bifidobacterium Infantis [Digestive Probiotic] 1 cap PO DAILY 04/29/19 [History] Dicyclomine [Bentyl] 20 mg PO BID 02/05/20 [History] Isosorbide Dinitrate 10 mg PO BID 02/05/20 [History] Acetaminophen/oxyCODONE [Percocet 325-5 MG] 2 each PO Q4H #15 tab 09/08/20 [Rx] Azelastine [Astelin Nasal Soln] 2 sprays NASBOTH Q12H 01/14/21 [History] Sertraline HCl [Zoloft] 100 mg PO DAILY 01/14/21 [History] Sucralfate [Carafate] 1 gm PO ACBED #56 tab 01/14/21 [Rx] Metoprolol Tartrate 50 mg PO BID 05/29/21 [History] Sertraline [Zoloft] 200 mg PO DAILY 05/29/21 [History] Past Medical History HEENT History: Reports: Impaired Vision, Macular Degeneration Other HEENT History: SURGERY FOR NASAL FX. HAS DEVIATED SEPTUM Cardiovascular History: Reports: Afib, Angina, CAD, High Cholesterol, Hypertension, Stents Respiratory History: Reports: Asthma, Sleep Apnea Gastrointestinal History: Reports: Chronic Constipation, Diverticulosis, Gastritis, GERD, GI Bleed, PUD Other Gastrointestinal History: GI BLEED 2015. EGD SHOWED ULCER. Genitourinary History: Reports: Pyelonephritis NETEZZA ARCHITECT History: Reports: Other NETEZZA ARCHITECT History: II PARA II Musculoskeletal History: Reports: Arthritis, Back Pain, Chronic, RA Neurological History: Reports: Concussion, Seizure Other Neuro History: LAST SEIZURE 2013 Psychiatric History: Reports: Anxiety, Depression, Panic Attack Endocrine/Metabolic History: Reports: Obesity/BMI 30+ Other Endocrine/Metabolic History: STATES OCCASIONALLY GET HYPOGLYCEMIC Hematologic History: Reports: Anemia Other Hematologic History: since GI bleed Immunologic History: Reports: None Oncologic (Cancer) History: Reports: None Dermatologic History: Reports: None - Infectious Disease History Infectious Disease History: Reports: Chicken Pox, Measles, Mumps - Past Surgical History Head Surgeries/Procedures: Reports: None HEENT Surgical History: Reports: Naso-Sinus Surgery, Tonsillectomy Cardiovascular Surgical History: Reports: Coronary Artery Stent Other Cardiovascular Surgeries/Procedures: STENT X1, RECCENT ANGIORAM 2017. Respiratory Surgical History: Reports: None GI Surgical History: Reports: Appendectomy, Bariatric Procedure, Cholecystectomy, Colonoscopy, EGD, Other (See Below) Other GI Surgeries/Procedures: EXPLORATORY LAPAROTOMY, LAPAROTOMY ADHESION REMOVAL. GASTRIC BIPASS STATES 2009. OPEN GALL BLADDER SURGERY. Female Surgical History: Reports: D&C, Hysterectomy, Salpingo-Oophorectomy Neurological Surgical History: Reports: None Musculoskeletal Surgical History: Reports: Arthroscopic Knee, Carpal Tunnel, Other (See Below) Other Musculoskeletal Surgeries/Procedures:: NECK SURGERY X2. DENIES HARDWARE. REMOVAL OF TAILBONE CHILD. LEFT CARPAL TUNNEL RELEASE. Back surgery 03/12/2018 STATES HAS HARDWARE IN, LOW BACK. Social & Family History - Family History Family Medical History: No Pertinent Family History Cardiac: Reports: [place] Respiratory: Reports: Asthma GI: Reports: Celiac Disease, Hepatitis, Irritable Bowel Syndrome, Jaundice OBGYN: Reports: Fibroids Musculoskeletal: Reports: Osteoporosis Neurological: Reports: CVA Psychiatric: Reports: ADHD, Bipolar, Depression, Emotional Problems, Learning Disability, Mood Swings Oncologic: Reports: Hodgkin's Lymphoma - Caffeine Use Caffeine Use: Reports: Coffee, Soda Caffeine Use Comment: 2 cups coffee and sometimes up to 2 sodas a day - Living Situation & Occupation Living situation: Reports: Occupation: Retired ED ROS GENERAL - Review of Systems Review Of Systems: See Below Constitutional: Reports: No Symptoms HEENT: Reports: Other (Left-sided headache) Respiratory: Reports: No Symptoms Cardiovascular: Reports: No Symptoms Endocrine: Reports: No Symptoms GI/Abdominal: Reports: No Symptoms : Reports: No Symptoms Musculoskeletal: Reports: No Symptoms Skin: Reports: No Symptoms Neurological: Reports: No Symptoms Psychiatric: Reports: No Symptoms Hematologic/Lymphatic: Reports: No Symptoms Immunologic: Reports: No Symptoms - Physical Exam Exam: See Below Exam Limited By: No Limitations General Appearance: Alert, WD/WN, No Apparent Distress Eye Exam: Bilateral Eye: EOMI, PERRL Nose: Other (Bilateral edema, erythema, no exudate) Head Exam: Atraumatic, Normocephalic, Other (Some tenderness to palpation of the left methodist) Neck: Normal Inspection. No: Lymphadenopathy (R), Lymphadenopathy (L) Respiratory/Chest: No Respiratory Distress, Lungs Clear, Normal Breath Sounds Cardiovascular: Normal Peripheral Pulses, Regular Rate, Rhythm, No Edema GI/Abdominal: Normal Bowel Sounds, Non-Tender Neuro Exam (Abbreviated): Alert, Oriented, CN II-XII Intact, Normal Cognition, Normal Gait, Normal Reflexes, Other (Proprioception intact bilateral upper and lower extremities, negative pronator drift). No: Sensory/Motor Deficit Back Exam: Normal Inspection. No: CVA Tenderness (R), CVA Tenderness (L) Extremities: Normal Inspection Psychiatric: Normal Affect, Normal Mood Skin Exam: Warm, Dry, Intact Course - Vital Signs Text/Narrative:: CT head without contrast showed no intracranial mass or acute hemorrhage. CBC, ESR, and CRP are within normal limits. Will be discharged to home. Last Recorded V/S: Last Vital Signs Temp Pulse 69 05/29/21 17:14 Resp BP 169/76 H 05/29/21 17:14 Pulse Ox - Orders/Labs/Meds Orders: Active Orders 24 hr Category Date Time Status Head wo Cont [CT] Stat Exams 05/29/21 15:00 Taken Labs: Laboratory Tests 05/29/21 05/29/21 Range/Units 16:49 16:49 WBC 6.1 (3.0-10.3) x10-3/uL RBC 4.12 (3.60-5.20) x10(6)uL Hgb 12.5 (11.4-15.5) g/dL Hct 37.5 (34.2-48.2) % MCV 91.1 (76.7-100.5) fL MCH 30.5 (23.9-33.9) pg MCHC 33.4 (31.9-34.8) g/dL RDW 12.9 (12.3-16.5) % Plt Count 195 (151-488) x10(3)uL MPV 7.1 (7.1-12.4) fL Neut % (Auto) 62.4 (30.8-76.2) % Lymph % (Auto) 28.0 (18.4-52.1) % Dawes % (Auto) 7.0 (4.4-15.7) % Eos % (Auto) 1.6 (0.6-8.1) % Baso % (Auto) 1.0 (0.2-1.5) % Neut # (Auto) 3.8 (1.5-6.3) x10-3/uL Lymph # (Auto) 1.7 (1.0-4.4) x10-3/uL Dawes # (Auto) 0.4 (0.3-1.0) x10-3/uL Eos # (Auto) 0.1 (0.0-0.8) x10-3/uL Baso # (Auto) 0.1 (0.0-0.1) x10-3/uL ESR 8 (0-20) mm/hr C-Reactive Protein < 0.2 L (0.5-0.9) mg/dL Meds: Medications Discontinued Medications Generic Name Dose Route Start Last Admin Trade Name Freq PRN Reason Stop Dose Admin Metoprolol Succinate 25 mg 05/29/21 16:55 05/29/21 17:14 Metoprolol Succinate 25 Mg Tab.Er PO 05/29/21 16:56 25 mg ONETIME ONE Administration Departure - Departure Time of Disposition: 17:26 Disposition: Home, Self-Care 01 Condition: Good Clinical Impression: Headache Qualifiers: Headache type: unspecified - Discharge Information *PRESCRIPTION DRUG MONITORING PROGRAM REVIEWED*: Not Applicable *COPY OF PRESCRIPTION DRUG MONITORING REPORT IN PATIENT TRISTAN: Not Applicable Instructions: General Headache Without Cause, [id number] Referrals: Reji Valladares MD [Primary Care Provider] - Additional Instructions: There was concern for giant cell arteritis however, CBC, CRP, and ESR all normal. CT of head without contrast showed no mass or acute hemorrhage. Patient will be discharged to home and advised to follow-up with primary care physician. Note that the patient does have erythema and edema of the sinus mucosa bilaterally. She uses topical antihistamine and topical steroids as treatment. Patient could have a developing sinus infection. There was no obvious exudate on physical exam in the emergency department. Patient advised to use Tylenol, 500 mg every 4 hours for pain control. Patient has been advised to only use ibuprofen sparingly due to history of gastric bypass. Sepsis Event Note (ED) - Focused Exam Vital Signs: Vital Signs Pulse BP 05/29/21 17:14 69 169/76 H - My Orders Last 24 Hours: My Active Orders 05/29/21 15:00 Head wo Cont [CT] Stat - Assessment/Plan Last 24 Hours: My Active Orders 05/29/21 15:00 Head wo Cont [CT] Stat
[2021-05-29] MEDS ORDERED: Metoprolol Succinate 25 MG Tab.ER PO ONE (16:55)
[2021-05-29 17:16] VITALS: BP 169/76; PULSE 69
== END 2021-05-29 17:40 | disposition home or self-care (01) ==
LOC: FB.ED 14:09
DX: R51.9 Headache, unspecified (principal); I48.91 Unspecified atrial fibrillation; I25.119 Atherosclerotic heart disease of native coronary artery with unspecified angina pectoris; E78.00 Pure hypercholesterolemia, unspecified; I10 Essential (primary) hypertension; J45.909 Unspecified asthma, uncomplicated; E66.9 Obesity, unspecified; Z95.5 Presence of coronary angioplasty implant and graft; Z88.0 Allergy status to penicillin; Z79.82 Long term (current) use of aspirin; Z79.899 Other long term (current) drug therapy; Z68.36 Body mass index [BMI] 36.0-36.9, adult
CPT/HCPCS: 36415; 70450; 85025; 85651; 86140; 99284; A9270